=== PATIENT | female | born 1985 | race Caucasian/White ===

== ENCOUNTER 2025-03-03 11:21 | Inpatient (IN) | payer OTHER, SELFPAY ==
--- NOTE | 2025-03-03 | ECG_ITS ---
Test Reason : MED CLEARANCE Blood Pressure : */* mmHG Vent. Rate : 79 BPM Atrial Rate : 79 BPM P-R Int : 170 ms QRS Dur : 88 ms QT Int : 398 ms P-R-T Axes : 36 79 25 degrees QTcB Int : 456 ms Normal sinus rhythm Cannot rule out Anterior infarct , age undetermined Abnormal ECG No previous ECGs available Referred By: Ana Hood Electronically Signed By: YESICA MORIN MD
[2025-03-03 11:33] VITALS: BP 160/80; PULSE 80; O2SAT 99
[2025-03-03 11:34] VITALS: BP 160/80; PULSE 80; RESP 16; TEMP 36.7; O2SAT 99; BMI 34.7
--- NOTE | 2025-03-03 11:40 | ED.PSYCH ---
HPI - Psych General Chief Complaint: Psychiatric Symptoms Stated Complaint: CRISIS EVAL,FROM [facility] [place] PER EMS Time Seen by Provider: 03/03/25 11:24 Source: patient and EMS Mode of arrival: EMS Limitations: no limitations History of Present Illness ED Provider: CATRACHITO ERAZO Narrative: 39 yo female with opiate use disorder no current use, on methadone 125mg daily dosed today, bipolar on meds with a prescriber presents the the ED via EMS from [facility] program. She states she has been experiencing an increase in depression and worries her current medication regimen is not managing her mental health effectively. She reports last night (03/02) she began feeling an increase in agitation, depression, and began to have thoughts of suicidal ideation without HI. She expresses a desire to abstain from drug use and has been current with her methadone dose at 125mg with last does being today before leaving the facility. She denies HI. MD complaint: suicidal ideation and feels depressed Onset (ago): week(s) Duration: getting worse History of same: Yes Relieving factors: none Exacerbating factors: other Context: significant life stressor Associated psychiatric symptoms: depression and suicidal ideation Associated symptoms: denies other symptoms Treatments prior to arrival: none Related Data Home Medications ?Medication ?Instructions ?Recorded ?Confirmed alprazolam 1 mg tablet 1 mg PO TID 03/03/25 03/03/25 bupropion HCl 150 mg tablet,12 hr 300 mg PO DAILY 03/03/25 03/03/25 sustained-release chlorpromazine 100 mg tablet 100 mg PO TID PRN Agitation 03/03/25 03/03/25 chlorpromazine 200 mg tablet 200 mg PO QPM 03/03/25 03/03/25 dextroamphetamine-amphetamine 30 30 mg PO QNOON 03/03/25 03/03/25 mg tablet dextroamphetamine-amphetamine ER 1 cap PO QAM 03/03/25 03/03/25 30 mg 24hr capsule,extend release (Adderall XR) gabapentin 100 mg capsule 100 mg PO Q6H 03/03/25 03/03/25 gabapentin 800 mg tablet 800 mg PO Q6H 03/03/25 03/03/25 ibuprofen 600 mg tablet 600 mg PO Q8H PRN Pain 03/03/25 03/03/25 lurasidone 120 mg tablet 120 mg PO DAILY 03/03/25 03/03/25 methadone 10 mg/mL oral concentrate 125 mg PO DAILY 03/03/25 03/03/25 nicotine (polacrilex) 2 mg gum 2 mg buccal Q1H PRN Nicotine 03/03/25 03/03/25 Cravings zolpidem 10 mg tablet 10 mg PO BEDTIME 03/03/25 03/03/25 Allergies Allergy/AdvReac Type Severity Reaction Status Date / Time phenobarbital Allergy Severe Anaphylaxis Verified 03/03/25 11:56 Review of Systems Review of Systems: Constitutional : No Fever, No Chills ENT/Mouth : No Ear Pain, No Nasal Congestion, No sore throat Eyes: No Eye Pain, No Swelling, No Redness Cardiovascular : No Chest Pain, No SOB Respiratory : No Cough, No Sputum, No Dyspnea Gastrointestinal : No Nausea, No Vomiting, No Diarrhea, No Hematochezia, No Melena Genitourinary : No Dysuria, No Urinary Frequency, No Hematuria Musculoskeletal : No Myalgias Skin : No Skin Lesions, No rash Neuro : No Weakness, No Numbness, No Paresthesias, No Dizziness, No Headache Psych : positive Anxiety, positive Depression, positive SI no HI All other systems reviewed and are negative [facility] Past Medical History Attestation statement: The following information was validated with the patient. Social History Social History Household Members: Unknown / Unable to assess Patient Tobacco Use Status: Current everyday Tobacco user Tobacco use type: Cigarette Smoked in Last 30 Days: Yes Patient Interested in Nicotine Replacement: Yes Patient Given Instructions on How to Stop Smoking: Yes Date Education Initiated: 03/03/25 Second Hand Smoke Exposure: No Use of substances other than those prescribed or required for medical reasons: Refusing to respond Advance Directives: No Advance Directives Information Provided: Yes Do you have a plan to hurt others: No Plan Recently lost weight without trying: No Nutrition Risks: No Nutritional Risk Patient : No : No Poor oral hygiene: No Physical Exam Vital Signs: Vital Signs: Last Vital Signs Temp 97.6 F 03/03/25 19:17 Pulse 93 03/03/25 19:17 Resp 18 03/03/25 19:17 BP 136/87 03/03/25 19:17 Pulse Ox 97 03/03/25 19:17 O2 Del Method Room Air 03/03/25 19:17 BMI result Body Mass Index 34.7 Appearance: Alert. Oriented X3. No acute distress. Eyes: Pupils equal, round and reactive to light. ENT: Pharynx normal. Neck: Normal inspection. Neck supple. CVS: Normal heart rate and rhythm. Pulses normal. Respiratory: No respiratory distress. Breath sounds normal. Abdomen: Soft and nontender. Skin: Skin warm and dry. Normal skin color. Normal skin turgor. Extremities: No lower extremity edema. No calf ttp Neuro: Oriented X 3. No motor deficit. No sensory deficit. CN2-12 intact Course Course Course Narrative: Time: 18:00 Date: 03/03/25 Provider: Ana Hood DO Physician observation ended at 1800 Patient to be admitted as inpatient to psychiatry. Medications Administered Generic Name Dose Route Start Last Admin Trade Name Freq PRN Reason Stop Dose Admin Alprazolam 1 mg 03/03/25 21:00 03/03/25 19:52 Alprazolam 0.5 Mg Tablet PO 1 mg TID PRIMITIVO Administration Chlorpromazine HCl 200 mg 03/03/25 18:00 03/03/25 18:16 Chlorpromazine Hcl 100 Mg Tablet PO 200 mg DAILY@1800 PRIMITIVO Administration Gabapentin 800 mg 03/03/25 21:00 03/03/25 19:52 Gabapentin 400 Mg Capsule PO 800 mg QID PRIMITIVO Administration Gabapentin 100 mg 03/03/25 21:00 03/03/25 19:53 Gabapentin 100 Mg Capsule PO 100 mg QID PRIMITIVO Administration Zolpidem Tartrate 10 mg 03/03/25 21:00 03/03/25 19:52 Zolpidem Tartrate 5 Mg Tablet PO 10 mg BEDTIME PRIMITIVO Administration Medical Decision Making Medical Decision Making [facility] Narrative: 39 yo female with opiate use disorder no current use on methadone 125mg daily dosed today, bipolar on meds with a prescriber. She states she has been experiencing an increase in depression and worries her current medication regimen is not managing her mental health effectively. She reports last night (03/02) she began feeling an increase in agitation, depression, and began to have thoughts of suicidal ideation without HI. She expresses a desire to abstain from drug use and has been current with her methadone dose at 125mg with last does being today before leaving the facility. She denies HI. Patient is non toxic appearing, vital signs stable with exception of elevated of BP 160/80. Will obtain labs and urine drug screen with consult to CARE team. Differential Diagnosis Differential Diagnoses: The differential diagnosis associated with the presentation includes depression, SI Admission/Observation Consideration of admission/observation: Escalation of care including admission/observation considered physician observation started at 1147am pending CARE team Consult Healthcare Provider Management of the patient was discussed with: Behavioral Health Provider Lab Data MDM Lab Attestation statement: I reviewed the patient's lab results. 03/03/25 12:25 03/03/25 12:25 Labs: Lab Results 03/03/25 03/03/25 Range/Units 12:25 16:43 WBC 7.1 (4.8-10.8) X10*3/uL RBC 4.80 (4.20-5.50) X10*6/uL Hgb 13.1 (12.0-16.0) g/dl Hct 39.1 (37.0-47.0) % MCV 81.5 (80.0-98.0) fL MCH 27.3 (27.0-33.0) pg MCHC 33.5 (31.0-35.0) g/dl RDW 13.2 (11.0-16.0) % Plt Count 169 (160-400) X10*3/uL MPV 9.9 (9.4-12.3) fL Immature Gran % (Auto) 0.3 (0.0-0.4) % Neut % (Auto) 66.7 (45-73) % Lymph % (Auto) 25.7 (20-40) % [place] % (Auto) 5.8 (2-11) % Eos % (Auto) 1.1 (0-4) % Baso % (Auto) 0.4 (0-2) % Lymph # (Auto) 1.8 (1.2-4.9) X10*3/uL [place] # (Auto) 0.4 (0.1-1.2) X10*3/uL Eos # (Auto) 0.1 (0.0-0.4) X10*3/uL Baso # (Auto) 0.0 (0.0-0.2) X10*3/uL Abs Immat Gran (auto) 0.02 (0.00-0.03) X10*3/uL Absolute Neuts (auto) 4.7 (2.0-8.3) x10*3/uL Absolute Nucleated RBC 0.000 (0.0-0.012) X10*3/uL Nucleated RBC % (auto) 0.0 (0.0-0.2) /100WBC Smear Tech's Comments VERIFIED Sodium 138 (135-145) mmol/L Potassium 4.2 (3.3-5.1) mmol/L Chloride 107 (96-108) mmol/L Carbon Dioxide 22 (22-29) mmol/L Anion Gap 13 (12-20) BUN 10 (9-16) mg/dL Creatinine 0.74 (0.5-1.4) mg/dL Estim Creat Clear Calc 105.0 Estimated GFR > 60 Random Glucose 92 (60-115) mg/dL Calcium 9.4 (8.4-10.2) mg/dL Magnesium 1.9 (1.6-2.6) mg/dL Total Bilirubin 0.5 (0.0-1.0) mg/dL Direct Bilirubin 0.2 (0.0-0.5) mg/dL AST 72 H (5-31) U/L ALT 91 H (0-31) U/L Alkaline Phosphatase 85 (39-117) U/L Total Protein 7.5 (6.5-8.0) g/dL Albumin 4.1 (3.5-5.0) g/dL Beta HCG, Quant < 2 mIU/mL Urine Opiates Screen Not Detected (Not Detect) Ur Buprenorphine Scrn Not Detected (Not Detect) ng/mL Ur Oxycodone Screen Not Detected (Not Detect) ng/mL Urine Methadone Screen Positive H (Not Detect) ng/mL Urine Fentanyl Screen POSITIVE H (Not Detect) Ur Barbiturates Screen Not Detected (Not Detect) Ur Phencyclidine Scrn Not Detected (Not Detect) Ur Amphetamines Screen POSITIVE H (Not Detect) U Benzodiazepines Scrn POSITIVE H (Not Detect) Urine Cocaine Screen Not Detected (Not Detect) U Marijuana (THC) Screen Not Detected (Not Detect) External Record Review External record reviewed: Outpatient record Discharge Plan Discharge Clinical Impression: Suicidal ideation, Bipolar disorder Patient Disposition: Admitted As Inpatient Interventions: Admission Worksheet (ED) Last Done: 03/03/25 18:45 Discharge Date/Time: 03/03/25 18:51
--- NOTE | 2025-03-03 12:19 | PC.NURSE ---
Patient is a difficult stick for blood draws/labs. Unsuccessful draw attempt by Karis (ED PCT). Hx IVDA. Extensive scar tissues throughout all extremities from past drug use. Stated I usually need an ultrasound to get my veins . talent consultant (Katelynn) aware. Ashley Young (ED PCT) at bedside attempting draw.
[2025-03-03 12:38] LABS: Basophils Percent Auto 0.4 % (0-2); Eosinophils Absolute Auto 0.1 X10*3/uL (0.0-0.4); Eosinophils Percent Auto 1.1 % (0-4); Hematocrit 39.1 % (37.0-47.0); Hemoglobin 13.1 g/dl (12.0-16.0); Imm Gran Abs Auto 0.02 X10*3/uL (0.00-0.03); Imm Gran Pct Auto 0.3 % (0.0-0.4); Lymphocytes Absolute Auto 1.8 X10*3/uL (1.2-4.9); Lymphocytes Percent Auto 25.7 % (20-40); MANUAL DIFF FLAG SCAN; Mean Corpuscular HGB Conc 33.5 g/dl (31.0-35.0); Mean Corpuscular Hemoglobin 27.3 pg (27.0-33.0); Mean Corpuscular Volume 81.5 fL (80.0-98.0); Monocytes Absolute Auto 0.4 X10*3/uL (0.1-1.2); Monocytes Percent Auto 5.8 % (2-11); Neutrophils Absolute Auto 4.7 x10*3/uL (2.0-8.3); Neutrophils Percent Auto 66.7 % (45-73); PLT CLUMP 1; Red Cell Distribution Width 13.2 % (11.0-16.0); SCAN SMEAR FLAG 1
[2025-03-03 12:41] LABS: White Blood Count 7.1 X10*3/uL (4.8-10.8)
--- NOTE | 2025-03-03 12:44 | PC.NURSE ---
Attempted to call [facility] to confirm the patient's Methadone clinic dose & last administration. Called . No response, left voicemail with callback number. Awaiting call back.
[2025-03-03 12:56] LABS: Alanine Aminotransferase 91 U/L (0-31); Albumin Level 4.1 g/dL (3.5-5.0); Alkaline Phosphatase 85 U/L (39-117); Anion Gap 13 (12-20); Aspartate Amino Transferase 72 U/L (5-31); Bilirubin Direct 0.2 mg/dL (0.0-0.5); Bilirubin Total 0.5 mg/dL (0.0-1.0); Blood Urea Nitrogen 10 mg/dL (9-16); Calcium 9.4 mg/dL (8.4-10.2); Carbon Dioxide 22 mmol/L (22-29); Chloride 107 mmol/L (96-108); Estimated Glomerular Filt Rate > 60; Glucose Random 92 mg/dL (60-115); HCG Quantitative < 2 mIU/mL; Magnesium 1.9 mg/dL (1.6-2.6); Potassium 4.2 mmol/L (3.3-5.1); Sodium 138 mmol/L (135-145); Total Protein 7.5 g/dL (6.5-8.0)
[2025-03-03 13:12] LABS: Mean Platelet Volume 9.9 fL (9.4-12.3); Platelet Count 169 X10*3/uL (160-400)
[2025-03-03 13:13] LABS: SLIDE REVIEW VERIFIED
--- NOTE | 2025-03-03 15:09 | PC.NURSE ---
Received faxed copy of medication list from [facility] ([facility]) [place]. Medication reconciliation completed. Also received call back from [facility] and confirmed Methadone dose of 125mg, last received today at 08:01AM.
--- NOTE | 2025-03-03 15:18 | HE.PHANOTE ---
Methadone Methadone dose verified with [facility] BRANDI Martinez. [phone].Methadone dose = 125 mg , last dose 03/03/25 @0801.
--- NOTE | 2025-03-03 16:01 | MHC.CARE ---
Patient evaluated by the CARE Team, recommended disposition is inpatient psychiatric treatment. ED provider Dr. Erwin apodaca
[2025-03-03 16:58] LABS: Amphetamine Screen Urine POSITIVE (Not Detect); Barbiturates, Urine Not Detected (Not Detect); Benzodiazepines Screen Urine POSITIVE (Not Detect); Buprenorphine Scr Not Detected (Not Detect); Cannabinoid Screen Urine Not Detected (Not Detect); Cocaine Screen Urine Not Detected (Not Detect); Fentanyl, urine POSITIVE (Not Detect); Methadone Screen, Urine Positive (Not Detect); Opiate Screen Urine Not Detected (Not Detect); Oxycodone Screen Urine Not Detected (Not Detect); Phencyclidine Screen Urine Not Detected (Not Detect)
--- NOTE | 2025-03-03 17:41 | PHA.MEDREC ---
Addendum entered by Mindi Benitez RPh 03/03/25 18:20: [facility] reviewed Original Note: Pharmacy Consult ? Medication Reconciliation Pharmacy has reviewed the medication reconciliation done by nursing. Utilized list from [facility] to confirm med list. Called [facility] and spoke to Sidra and she confirmed patient Adderall dose is, Adderall XR 30 mg daily in the morning, and Dextroamphetamine-amphetamine 30 mg daily at noon, and Chlorpromazine 100 mg is TID PRN not BID. Updated med rec with changes.
[2025-03-03] MEDS: chlorproMAZINE HCl 100 MG TABLET 200 MG PO (18:16)
[2025-03-03 18:43] VITALS: BP 144/92; PULSE 86; RESP 18; TEMP 36.5; O2SAT 97
[2025-03-03 19:17] VITALS: BP 136/87; PULSE 93; RESP 18; TEMP 36.4; O2SAT 97
--- NOTE | 2025-03-03 19:18 | PC.ADMIT ---
Susana is a 39-year-old female [place] [facility] [place] [facility] on a CV for treatment of Bipolar, PTSD, depression and anxiety d/o. Tox screen positive for methadone, fentanyl, benzos and amhetamines. Pt takes prescribed methadone, adderall and thorazine. Skin check revealed healed scars on bilateral arms d/t substance use. Pt was transferred from [facility] in [place] for increased depression and suicidal thoughts. Pt had thoughts to overdose on medication but did not follow through. Per crisis eval pt has been in recovery from opiates for 6 months. Upon arrival to , pt was alert and oriented x4. Pt was agitated because I'm supposed to get my meds 3 times a day and I only got them in the morning, I don't understand why they didn't give them to me this afternoon. Pt refused to participate in remainder of admission assessment. RN asked pt to complete safety tool but pt stated none of that applies to me. Pt has hx of arrests and incarcerations related to drugs. Per crisis eval pt has a hx of trauma and suicidal ideation but pt adamantly denies this. Pt reports feeling safe on the unit and is on 15 minute safety checks.
[2025-03-03] MEDS: Zolpidem Tartrate 5 MG TABLET 10 MG PO (19:52)
[2025-03-03] MEDS: Gabapentin 400 MG CAPSULE 800 MG PO (19:52)
[2025-03-03] MEDS: ALPRAZolam 0.5 MG TABLET 1 MG PO (19:52)
[2025-03-03] MEDS: Gabapentin 100 MG CAPSULE PO (19:53)
[2025-03-03 20:02] VITALS: BMI 37.8
[2025-03-04] MEDS: methADONE HCl 20 MG/2 ML ORAL.CONC 125 MG PO (07:58)
[2025-03-04 08:00] VITALS: BP 108/68; PULSE 90; RESP 16; TEMP 36.8; O2SAT 96
[2025-03-04] MEDS: Lurasidone HCl 40 MG TABLET 120 MG PO (08:47)
[2025-03-04] MEDS: Gabapentin 400 MG CAPSULE 800 MG PO ×4 (08:48→20:04)
[2025-03-04] MEDS: buPROPion HCl XL 300 MG TAB.ER.24H PO (08:48)
[2025-03-04] MEDS: ALPRAZolam 0.5 MG TABLET 1 MG PO ×3 (08:48→20:04)
[2025-03-04] MEDS: Gabapentin 100 MG CAPSULE PO ×3 (08:48→17:03)
--- NOTE | 2025-03-04 13:23 | P.HPPS_ITS ---
HPI Date of Service: 03/04/25 Chief Complaint: Depression Sources of Information: patient interviewed, chart reviewed and crisis/core team assessment reviewed HPI Subjective Notes: Lynch Warning and Conditional Voluntary Narrative: Pt is a 39 yo with hx bipolar disorder, PTSD, opioid use disorder, on methadone, who presents for worsening depression and SI with thoughts but no plan or intention to overdose. Patient has been living at a [facility] and reports that she has been sober since August 2024 citing her daughter as a protective factor. She reports that since this past November her depression increased and things started getting harder; she has been without motivation, hard to get out of bed, not attending to ADLs, increase guilty feelings, poor concentration, diminished interest, low energy and difficulty falling asleep. She discussed this with outpatient provider who continued to increase Latuda however it remained ineffective and also caused the side effect of emotional numbing. She asked for a medication change but says provider continued to increase Latuda dose. Patient felt that no one was listening to her, depression increased and she started to feel hopeless. This past week she started having SI and so came to the hospital. No recent manic episodes for over a year; denies AVH Pt seen on 03/05/25 at 6pm Past Psychiatric History: Past psychiatric hospitalizations Med trials: [place]; did not prove helpful depakote; did not prove helpful Latuda; not helpful and caused emotional numbing Seroquel (much wt gain) effexor; unsure Paxil; not sure if helped helped wellbutrin does not seem to be helping Medical Evaluation Reviewed: Yes [facility] Medical History (Updated 03/05/25 @ 09:18 by Joni House MD) Opioid use disorder in remission PTSD (post-traumatic stress disorder) Schizoaffective disorder, bipolar type Family History: Defer Social History: Has been living in a [facility] Has a daughter who is 18 and serves as a protective factor Substance History: History of opioid abuse; on methadone Diagnostics Vital Signs (24Hr): Vital Signs - 24 hr 03/03/25 18:43 03/03/25 19:17 03/04/25 08:00 Temperature 97.7 F 97.6 F 98.3 F Pulse Rate 86 93 90 Respiratory Rate 18 18 16 Blood Pressure 144/92 H 136/87 108/68 Pulse Oximetry 97 97 96 Oxygen Delivery Method Room Air Room Air Room Air BMI result Body Mass Index 37.8 Labs 04/16/25 12:25 03/03/25 12:25 Labs: Laboratory Results - last 48 hr 03/03/25 03/03/25 12:25 16:43 WBC 7.1 RBC 4.80 Hgb 13.1 Hct 39.1 MCV 81.5 MCH 27.3 MCHC 33.5 RDW 13.2 Plt Count 169 MPV 9.9 Immature Gran % (Auto) 0.3 Neut % (Auto) 66.7 Lymph % (Auto) 25.7 [place] % (Auto) 5.8 Eos % (Auto) 1.1 Baso % (Auto) 0.4 Lymph # (Auto) 1.8 [place] # (Auto) 0.4 Eos # (Auto) 0.1 Baso # (Auto) 0.0 Abs Immat Gran (auto) 0.02 Absolute Neuts (auto) 4.7 Absolute Nucleated RBC 0.000 Nucleated RBC % (auto) 0.0 Smear Tech's Comments VERIFIED Sodium 138 Potassium 4.2 Chloride 107 Carbon Dioxide 22 Anion Gap 13 BUN 10 Creatinine 0.74 Estim Creat Clear Calc 105.0 Estimated GFR > 60 Random Glucose 92 Calcium 9.4 Magnesium 1.9 Total Bilirubin 0.5 Direct Bilirubin 0.2 AST 72 H ALT 91 H Alkaline Phosphatase 85 Total Protein 7.5 Albumin 4.1 Beta HCG, Quant < 2 Urine Opiates Screen Not Detected Ur Buprenorphine Scrn Not Detected Ur Oxycodone Screen Not Detected Urine Methadone Screen Positive H Urine Fentanyl Screen POSITIVE H Ur Barbiturates Screen Not Detected Ur Phencyclidine Scrn Not Detected Ur Amphetamines Screen POSITIVE H U Benzodiazepines Scrn POSITIVE H Urine Cocaine Screen Not Detected U Marijuana (THC) Screen Not Detected Meds/Allergies Meds Home Medications ?Medication ?Instructions ?Recorded ?Confirmed ?Type alprazolam 1 mg tablet 1 mg PO TID 03/03/25 03/03/25 History bupropion HCl 150 mg tablet,12 hr 300 mg PO DAILY 03/03/25 03/03/25 History sustained-release chlorpromazine 100 mg tablet 100 mg PO TID PRN Agitation 03/03/25 03/03/25 History chlorpromazine 200 mg tablet 200 mg PO QPM 03/03/25 03/03/25 History dextroamphetamine-amphetamine 30 30 mg PO QNOON 03/03/25 03/03/25 History mg tablet dextroamphetamine-amphetamine ER 1 cap PO QAM 03/03/25 03/03/25 History 30 mg 24hr capsule,extend release (Adderall XR) gabapentin 100 mg capsule 100 mg PO Q6H 03/03/25 03/03/25 History gabapentin 800 mg tablet 800 mg PO Q6H 03/03/25 03/03/25 History ibuprofen 600 mg tablet 600 mg PO Q8H PRN Pain 03/03/25 03/03/25 History lurasidone 120 mg tablet 120 mg PO DAILY 03/03/25 03/03/25 History methadone 10 mg/mL oral concentrate 125 mg PO DAILY 03/03/25 03/03/25 History nicotine (polacrilex) 2 mg gum 2 mg buccal Q1H PRN Nicotine 03/03/25 03/03/25 History Cravings zolpidem 10 mg tablet 10 mg PO BEDTIME 03/03/25 03/03/25 History Allergies Allergies Allergy/AdvReac Type Severity Reaction Status Date / Time phenobarbital Allergy Severe Anaphylaxis Verified 03/03/25 11:56 Mental Status Exam Mental Status Exam Narrative: Pt is alert and oriented; behavior is cooperative, isolative though friendly on approach; calm; patient is not in distress; dressed in casual attire, unkempt; mood is described as depressed and affect congruent, downcast; eye contact somewhat avoidant; Speech is a little slowed; a little soft; normal prosody; not pressured; psychomotor retardation present; thought process is organized and goal directed; Thought content is on tx; fighting off thoughts of hopelessness; otherwise pertinent to relevant topics and without any delusional content, paranoid ideations or grandiosity; passive SI; no HI; Denies AVH and there is no evidence of perceptual disturbance. Patients insight and judgment impaired Assessment & Plan Assessment & Plan (1) Schizoaffective disorder, bipolar type: Status: Acute Code(s): F25.0 - Schizoaffective disorder, bipolar type (2) PTSD (post-traumatic stress disorder): Status: Acute Code(s): F43.10 - Post-traumatic stress disorder, unspecified (3) Opioid use disorder in remission: Status: Acute Code(s): F11.91 - Opioid use, unspecified, in remission Plan Pt is a 39 yo with hx PTSD, bipolar disorder, PTSD, opioid use disorder, on methadone, who presents for worsening depression and SI with thoughts but no plan or intention to overdose. Patient has been living at a [facility] and reports that she has been sober since August 2024 citing her daughter as a protective factor. She reports that since this past November her depression increased and things started getting harder; she has been without motivation, hard to get out of bed, not attending to ADLs, increase guilty feelings, poor concentration, diminished interest, low energy and difficulty falling asleep. She discussed this with outpatient provider who continued to increase Latuda however it remained ineffective and also caused the side effect of emotional numbing. She asked for a medication change but says provider continued to increase Latuda dose. Patient felt that no one was listening to her, depression increased and she started to feel hopeless. This past week she started having SI and so came to the hospital. No recent manic episodes for over a year; denies AVH Formulation/clinical reasoning: Patient with bipolar depression that has been worsening. Has numerous failed medication trials including lithium, Depakote and now Latuda. Discussed risks/side effects of options including Vraylar and patient agrees to start Vraylar. Patient reports sobriety since August of last year; UDS positive for fentanyl however this could be false positive and patient has been living in a TSS. Patient wanted to discontinue Wellbutrin since she has not found it helpful at all; asked for gabapentin to be lowered back to 800 q.i.d. not sure why was increased to 900; patient asks for Thorazine q.h.s. for insomnia and for anxiety. Wants to remain on methadone Plan: CV Q 15 minute checks Start Vraylar 1.5 mg today and then 3 mg tomorrow (insurance should cover given numerous failed mood stabilizing medication trials) DC Latuda: Not helpful and causes emotional numbing dc'd wellburin; not helpful lowere eben to 800 Thorazine 200 mg q.h.s. Thorazine 50 mg p.r.n. for agitation Continue Xanax since patient is on it as an outpatient Continued Ambien Med trials: [place]; did not prove helpful depakote; did not prove helpful Latuda; not helpful and caused emotional numbing Seroquel (much wt gain) effexor; unsure Paxil; not sure if helped helped wellbutrin does not seem to be helping Patient educated on: diagnosis, medication risk/benefits and substance abuse Informed Consent: understands Reason for continued inpatient stay Substantial Risk for: rapid decompensation Statement Statement: I have reviewed the history and physical and performed a pertinent examination on my patient. No changes have occurred unless specified. If the History and Physical was not performed prior to admission, the Hospitalist's service will be consulted for completing the admission physical. Time Spent With Patient Time: Total time managing care of this patient today ____ minutes.
[2025-03-04] MEDS: chlorproMAZINE HCl 100 MG TABLET 200 MG PO (17:03)
[2025-03-04] MEDS: Nicotine Polacrilex 2 MG GUM 4 MG BUCCAL (17:05)
[2025-03-04 20:00] VITALS: BP 139/77; PULSE 87; RESP 16; TEMP 36.8; O2SAT 97
[2025-03-04] MEDS: Cariprazine HCl 1.5 MG CAPSULE PO (20:04)
[2025-03-04] MEDS: Zolpidem Tartrate 5 MG TABLET 10 MG PO (20:05)
[2025-03-05 07:41] VITALS: BP 108/70; PULSE 85; RESP 14; TEMP 36.4; O2SAT 98
[2025-03-05] MEDS: methADONE HCl 20 MG/2 ML ORAL.CONC 125 MG PO (08:29)
[2025-03-05] MEDS: ALPRAZolam 0.5 MG TABLET 1 MG PO ×3 (08:31→20:16)
[2025-03-05] MEDS: Cariprazine HCl 3 MG CAPSULE PO (08:32)
[2025-03-05] MEDS: Gabapentin 400 MG CAPSULE 800 MG PO ×4 (08:32→20:17)
[2025-03-05] MEDS: chlorproMAZINE HCl 100 MG TABLET PO ×2 (08:33→16:04)
[2025-03-05] MEDS: Nicotine Polacrilex 2 MG GUM 4 MG BUCCAL (08:57)
--- NOTE | 2025-03-05 09:19 | HO.PSYCHPN ---
Subjective Subjective Date of Service: 03/05/25 Reason For Visit: Depression Subjective Notes: Conditional Voluntary Interim History: Active on unit, pacing while listening to unit headphones. Patient reports her depression has improved but continues to feel anxious throughout the day. per nursing, slept 8 hours last night. denies SI/HI/VH/AH. Patient encouraged to attend groups. Medication Compliance: Yes Side effects from medications: No Mental Status Exam Mental Status Exam Narrative: Pt is alert and oriented; behavior is cooperative and calm; dressed in casual attire; mood is described as anxious ; eye contact appropriate; Speech is normal rate, volume and not pressured; thought process is organized and goal directed; Thought content is on tx; denies SI/HI/VH/AH. Diagnostics Vital Signs (24Hr): Vital Signs - 24 hr 03/04/25 20:00 03/05/25 07:41 Temperature 98.3 F 97.5 F Pulse Rate 87 85 Respiratory Rate 16 14 Blood Pressure 139/77 108/70 Pulse Oximetry 97 98 Oxygen Delivery Method Room Air Room Air BMI result Body Mass Index 37.8 Labs 03/03/25 12:25 03/03/25 12:25 Labs: Laboratory Results - last 48 hr 03/03/25 03/03/25 12:25 16:43 WBC 7.1 RBC 4.80 Hgb 13.1 Hct 39.1 MCV 81.5 MCH 27.3 MCHC 33.5 RDW 13.2 Plt Count 169 MPV 9.9 Immature Gran % (Auto) 0.3 Neut % (Auto) 66.7 Lymph % (Auto) 25.7 [place] % (Auto) 5.8 Eos % (Auto) 1.1 Baso % (Auto) 0.4 Lymph # (Auto) 1.8 [place] # (Auto) 0.4 Eos # (Auto) 0.1 Baso # (Auto) 0.0 Abs Immat Gran (auto) 0.02 Absolute Neuts (auto) 4.7 Absolute Nucleated RBC 0.000 Nucleated RBC % (auto) 0.0 Smear Tech's Comments VERIFIED Sodium 138 Potassium 4.2 Chloride 107 Carbon Dioxide 22 Anion Gap 13 BUN 10 Creatinine 0.74 Estim Creat Clear Calc 105.0 Estimated GFR > 60 Random Glucose 92 Calcium 9.4 Magnesium 1.9 Total Bilirubin 0.5 Direct Bilirubin 0.2 AST 72 H ALT 91 H Alkaline Phosphatase 85 Total Protein 7.5 Albumin 4.1 Beta HCG, Quant < 2 Urine Opiates Screen Not Detected Ur Buprenorphine Scrn Not Detected Ur Oxycodone Screen Not Detected Urine Methadone Screen Positive H Urine Fentanyl Screen POSITIVE H Ur Barbiturates Screen Not Detected Ur Phencyclidine Scrn Not Detected Ur Amphetamines Screen POSITIVE H U Benzodiazepines Scrn POSITIVE H Urine Cocaine Screen Not Detected U Marijuana (THC) Screen Not Detected Medications Medications Current Medications Acetaminophen (Acetaminophen 325 Mg Tablet) 650 mg PO Q6H PRN PRN Reason: Headache/Pain, Scale 1-10 Al Hydroxide/Mg Hydroxide (Magnesium Hydrox/Alum Hydrox 30 Ml Oral.Susp) 30 ml PO Q6H PRN PRN Reason: Heartburn/Nausea Alprazolam (Alprazolam 0.5 Mg Tablet) 1 mg PO TID [facility] Last Admin: 03/05/25 08:31 Dose: 1 mg Cariprazine (Cariprazine Hcl 3 Mg Capsule) 3 mg PO DAILY [facility] Last Admin: 03/05/25 08:32 Dose: 3 mg Chlorpromazine HCl (Chlorpromazine Hcl 100 Mg Tablet) 100 mg PO TID PRN PRN Reason: Agitation Last Admin: 03/05/25 08:33 Dose: 100 mg Chlorpromazine HCl (Chlorpromazine Hcl 100 Mg Tablet) 200 mg PO BEDTIME [facility] Last Admin: 03/04/25 20:07 Dose: Not Given Gabapentin (Gabapentin 400 Mg Capsule) 800 mg PO QID [facility] Last Admin: 03/05/25 08:32 Dose: 800 mg Hydroxyzine HCl (Hydroxyzine Hcl 25 Mg Tablet) 25 mg PO Q6H PRN PRN Reason: mild anxiety Ibuprofen (Ibuprofen 600 Mg Tablet) 600 mg PO Q8H PRN PRN Reason: Pain, Mild (Pain Scale 1-3) Magnesium Hydroxide (Milk Of Magnesia 30 Ml Oral.Susp) 30 ml PO DAILY PRN PRN Reason: Constipation Methadone HCl (Methadone Hcl 20 Mg/2 Ml Oral.Conc) 125 mg PO DAILY@0800 [facility] Last Admin: 03/05/25 08:29 Dose: 125 mg Nicotine (Nicotine 21 Mg Patch.Td24) 21 mg TRANSDERMA DAILY PRN PRN Reason: smoking cessation Nicotine Polacrilex (Nicotine Polacrilex 2 Mg Gum) 4 mg BUCCAL Q2H PRN PRN Reason: Nicotine Cravings Last Admin: 03/05/25 08:57 Dose: 4 mg Trazodone HCl (Trazodone Hcl 50 Mg Tablet) 50 mg PO BEDTIME MRX1 PRN PRN Reason: Insomnia Zolpidem Tartrate (Zolpidem Tartrate 5 Mg Tablet) 10 mg PO BEDTIME PRIMITIVO Last Admin: 03/04/25 20:05 Dose: 10 mg Allergies Allergies Allergy/AdvReac Type Severity Reaction Status Date / Time phenobarbital Allergy Severe Anaphylaxis Verified 03/03/25 11:56 Assessment & Plan Assessment & Plan (1) Bipolar disorder: Status: Acute Code(s): F31.9 - Bipolar disorder, unspecified (2) PTSD (post-traumatic stress disorder): Status: Acute Code(s): F43.10 - Post-traumatic stress disorder, unspecified (3) Opioid use disorder in remission: Status: Acute Code(s): F11.91 - Opioid use, unspecified, in remission Plan Pt is a 39 yo with hx PTSD, bipolar disorder, PTSD, opioid use disorder, on methadone, who presents for worsening depression and SI with thoughts but no plan or intention to overdose. Patient has been living at a [facility] and reports that she has been sober since August 2024 citing her daughter as a protective factor. She reports that since this past November her depression increased and things started getting harder; she has been without motivation, hard to get out of bed, not attending to ADLs, increase guilty feelings, poor concentration, diminished interest, low energy and difficulty falling asleep. She discussed this with outpatient provider who continued to increase Latuda however it remained ineffective and also caused the side effect of emotional numbing. She asked for a medication change but says provider continued to increase Latuda dose. Patient felt that no one was listening to her, depression increased and she started to feel hopeless. This past week she started having SI and so came to the hospital. No recent manic episodes for over a year; denies [facility] Formulation/clinical reasoning: Patient with bipolar depression that has been worsening. Has numerous failed medication trials including lithium, Depakote and now Latuda. Discussed risks/side effects of options including Vraylar and patient agrees to start Vraylar. Patient reports sobriety since August of last year; UDS positive for fentanyl however this could be false positive and patient has been living in a TSS. Patient wanted to discontinue Wellbutrin since she has not found it helpful at all; asked for gabapentin to be lowered back to 800 q.i.d. not sure why was increased to 900; patient asks for Thorazine q.h.s. for insomnia and for anxiety. Wants to remain on methadone Plan: CV Q 15 minute checks Start Vraylar 1.5 mg today and then 3 mg tomorrow (insurance should cover given numerous failed mood stabilizing medication trials) DC Latuda: Not helpful and causes emotional numbing dc'd wellburin; not helpful lowere eben to 800 Thorazine 100 mg q.h.s. Thorazine 50 mg p.r.n. for agitation 03/05: Active on unit, pacing while listening to unit headphones. Patient reports her depression has improved but continues to feel anxious throughout the day. per nursing, slept 8 hours last night. denies SI/HI/VH/AH. Patient encouraged to attend groups. Continue current tx plan Patient educated on: diagnosis, medication risk/benefits and therapeutic strategies Reason for continued inpatient stay Substantial Risk for: med/psych decompensation Time Spent With Patient Time: Total time managing care of this patient today _20___ minutes.
[2025-03-05 20:00] VITALS: BP 119/62; PULSE 86; RESP 18; TEMP 36.6; O2SAT 94
[2025-03-05] MEDS: Zolpidem Tartrate 5 MG TABLET 10 MG PO (20:17)
[2025-03-05] MEDS: chlorproMAZINE HCl 100 MG TABLET 200 MG PO (20:18)
[2025-03-06 08:00] VITALS: BP 122/90; PULSE 100; RESP 14; TEMP 36.3; O2SAT 98
[2025-03-06] MEDS: methADONE HCl 20 MG/2 ML ORAL.CONC 125 MG PO (08:30)
[2025-03-06] MEDS: ALPRAZolam 0.5 MG TABLET 1 MG PO ×3 (08:34→20:02)
[2025-03-06] MEDS: chlorproMAZINE HCl 100 MG TABLET PO (08:34)
[2025-03-06] MEDS: Cariprazine HCl 3 MG CAPSULE PO (08:35)
[2025-03-06] MEDS: Gabapentin 400 MG CAPSULE 800 MG PO ×2 (08:35→18:06)
[2025-03-06] MEDS: Nicotine Polacrilex 2 MG GUM 4 MG BUCCAL ×2 (09:45→18:30)
--- NOTE | 2025-03-06 10:45 | P.PNPSI_ITS ---
Subjective Subjective Date of Service: 03/06/25 Reason For Visit: Depression Subjective Notes: Conditional Voluntary Interim History: Pt slept 6hrs. She has been mostly in bed. She reports feeling anxious. She is on several medications including thorazine, gabapentin, xanax, vraylar. When asked to describe she reports she is moving her legs, which this automobile and property underwriter can see as we meeting, restless. Seems more akathisia. We discussed tapering off thorazine and trying propanolol instead. Medication Compliance: Yes Review of Systems Review of Systems Constitutional : No Fever, No Chills ENT/Mouth : No Ear Pain, No Nasal Congestion, No sore throat Eyes: No Eye Pain, No Swelling, No Redness Cardiovascular : No Chest Pain, No SOB Respiratory : No Cough, No Sputum, No Dyspnea Gastrointestinal : No Nausea, No Vomiting, No Diarrhea, No Hematochezia, No Melena Genitourinary : No Dysuria, No Urinary Frequency, No Hematuria Musculoskeletal : No Myalgias Skin : No Skin Lesions, No rash Neuro : No Weakness, No Numbness, No Paresthesias, No Dizziness, No Headache Psych : positive Anxiety, positive Depression, positive SI no HI All other systems reviewed and are negative Mental Status Exam Mental Status Exam Narrative: Pt is alert and oriented; behavior is cooperative and calm; dressed in casual attire; mood is described as anxious ; eye contact appropriate; Speech is normal rate, volume and not pressured; thought process is organized and goal directed; Thought content is on tx; denies SI/HI/VH/AH. Diagnostics Vital Signs (24Hr): Vital Signs - 24 hr 03/05/25 20:00 03/06/25 08:00 Temperature 97.8 F 97.3 F Pulse Rate 86 100 Respiratory Rate 18 14 Blood Pressure 119/62 122/90 H Pulse Oximetry 94 98 Oxygen Delivery Method Room Air Room Air BMI result Body Mass Index 37.8 Labs 03/03/25 12:25 03/03/25 12:25 Medications Medications Current Medications Acetaminophen (Acetaminophen 325 Mg Tablet) 650 mg PO Q6H PRN PRN Reason: Headache/Pain, Scale 1-10 Al Hydroxide/Mg Hydroxide (Magnesium Hydrox/Alum Hydrox 30 Ml Oral.Susp) 30 ml PO Q6H PRN PRN Reason: Heartburn/Nausea Alprazolam (Alprazolam 0.5 Mg Tablet) 1 mg PO TID [facility] Last Admin: 03/06/25 08:34 Dose: 1 mg Cariprazine (Cariprazine Hcl 3 Mg Capsule) 3 mg PO DAILY [facility] Last Admin: 03/06/25 08:35 Dose: 3 mg Gabapentin (Gabapentin 400 Mg Capsule) 1,600 mg PO BEDTIME PRIMITIVO Gabapentin (Gabapentin 400 Mg Capsule) 800 mg PO BID@1000,1700 [facility] Hydroxyzine HCl (Hydroxyzine Hcl 25 Mg Tablet) 25 mg PO Q6H PRN PRN Reason: mild anxiety Ibuprofen (Ibuprofen 600 Mg Tablet) 600 mg PO Q8H PRN PRN Reason: Pain, Mild (Pain Scale 1-3) Magnesium Hydroxide (Milk Of Magnesia 30 Ml Oral.Susp) 30 ml PO DAILY PRN PRN Reason: Constipation Methadone HCl (Methadone Hcl 20 Mg/2 Ml Oral.Conc) 125 mg PO DAILY@0800 [facility] Last Admin: 03/06/25 08:30 Dose: 125 mg Nicotine (Nicotine 21 Mg Patch.Td24) 21 mg TRANSDERMA DAILY PRN PRN Reason: smoking cessation Nicotine Polacrilex (Nicotine Polacrilex 2 Mg Gum) 4 mg BUCCAL Q2H PRN PRN Reason: Nicotine Cravings Last Admin: 03/06/25 09:45 Dose: 4 mg Propranolol HCl (Propranolol Hcl 10 Mg Tablet) 10 mg PO TID [facility]; Protocol Trazodone HCl (Trazodone Hcl 50 Mg Tablet) 50 mg PO BEDTIME MRX1 PRN PRN Reason: Insomnia Zolpidem Tartrate (Zolpidem Tartrate 5 Mg Tablet) 10 mg PO BEDTIME [facility] Last Admin: 03/05/25 20:17 Dose: 10 mg Allergies Allergies Allergy/AdvReac Type Severity Reaction Status Date / Time phenobarbital Allergy Severe Anaphylaxis Verified 03/03/25 11:56 Assessment & Plan Assessment & Plan (1) Bipolar disorder: Status: Acute Code(s): F31.9 - Bipolar disorder, unspecified (2) PTSD (post-traumatic stress disorder): Status: Acute Code(s): F43.10 - Post-traumatic stress disorder, unspecified (3) Opioid use disorder in remission: Status: Acute Code(s): F11.91 - Opioid use, unspecified, in remission Plan Pt is a 39 yo with hx PTSD, bipolar disorder, PTSD, opioid use disorder, on methadone, who presents for worsening depression and SI with thoughts but no plan or intention to overdose. Patient has been living at a TSS and reports that she has been sober since August 2024 citing her daughter as a protective factor. She reports that since this past November her depression increased and things started getting harder; she has been without motivation, hard to get out of bed, not attending to ADLs, increase guilty feelings, poor concentration, diminished interest, low energy and difficulty falling asleep. She discussed this with outpatient provider who continued to increase Latuda however it remained ineffective and also caused the side effect of emotional numbing. She asked for a medication change but says provider continued to increase Latuda dose. Patient felt that no one was listening to her, depression increased and she started to feel hopeless. This past week she started having SI and so came to the hospital. No recent manic episodes for over a year; denies [facility] Formulation/clinical reasoning: Patient with bipolar depression that has been worsening. Has numerous failed medication trials including lithium, Depakote and now Latuda. Discussed risks/side effects of options including Vraylar and patient agrees to start Vraylar. Patient reports sobriety since August of last year; UDS positive for fentanyl however this could be false positive and patient has been living in a TSS. Patient wanted to discontinue Wellbutrin since she has not found it helpful at all; asked for gabapentin to be lowered back to 800 q.i.d. not sure why was increased to 900; patient asks for Thorazine q.h.s. for insomnia and for anxiety. Wants to remain on methadone Plan: CV Q 15 minute checks Start Vraylar 1.5 mg today and then 3 mg tomorrow (insurance should cover given numerous failed mood stabilizing medication trials) DC Latuda: Not helpful and causes emotional numbing dc'd wellburin; not helpful lowere eben to 800 Thorazine 100 mg q.h.s. Thorazine 50 mg p.r.n. for agitation 03/05: Active on unit, pacing while listening to unit headphones. Patient reports her depression has improved but continues to feel anxious throughout the day. per nursing, slept 8 hours last night. denies SI/HI/VH/AH. Patient encouraged to attend groups. Continue current tx plan 03/06 seems more than anxiety akathisia. d/c thorazine and start propanolol 10mg po TID. continue other meds. will increase trazodone, move dose of gabapetin to night time. Reason for continued inpatient stay Substantial Risk for: inability to function Time Spent With Patient Time: Total time managing care of this patient today ____ minutes.
[2025-03-06 15:01] VITALS: BP 134/68; PULSE 92
[2025-03-06] MEDS: Propranolol HCL 10 MG TABLET PO ×2 (15:01→20:02)
[2025-03-06 20:00] VITALS: BP 113/70; PULSE 83; RESP 16; TEMP 36.4; O2SAT 98
[2025-03-06] MEDS: Gabapentin 400 MG CAPSULE 1600 MG PO (20:01)
[2025-03-06] MEDS: Zolpidem Tartrate 5 MG TABLET 10 MG PO (20:02)
[2025-03-06] MEDS: traZODone HCL 50 MG TABLET PO (22:32)
[2025-03-06] MEDS: hydrOXYzine HCL 25 MG TABLET PO (22:32)
[2025-03-07 07:10] VITALS: BP 108/71; PULSE 81; RESP 14; TEMP 36.6; O2SAT 98
[2025-03-07] MEDS: methADONE HCl 20 MG/2 ML ORAL.CONC 125 MG PO (08:09)
[2025-03-07] MEDS: Gabapentin 400 MG CAPSULE 800 MG PO ×2 (08:59→16:50)
[2025-03-07 09:00] VITALS: BP 108/71; PULSE 81
[2025-03-07] MEDS: Propranolol HCL 10 MG TABLET PO ×3 (09:00→21:58)
[2025-03-07] MEDS: Cariprazine HCl 3 MG CAPSULE PO (09:00)
[2025-03-07] MEDS: Nicotine Polacrilex 2 MG GUM 4 MG BUCCAL (09:00)
[2025-03-07] MEDS: ALPRAZolam 0.5 MG TABLET 1 MG PO ×3 (09:00→22:01)
[2025-03-07 16:31] VITALS: BP 116/66; PULSE 66
[2025-03-07 16:32] VITALS: BP 116/66; PULSE 66
[2025-03-07 20:00] VITALS: BP 110/61; PULSE 79; RESP 18; TEMP 36.6; O2SAT 98
[2025-03-07 21:58] VITALS: BP 110/61; PULSE 79
[2025-03-07] MEDS: hydrOXYzine HCL 25 MG TABLET PO (21:58)
[2025-03-07] MEDS: Zolpidem Tartrate 5 MG TABLET 10 MG PO (21:58)
[2025-03-07] MEDS: traZODone HCL 50 MG TABLET PO (22:00)
[2025-03-07] MEDS: Gabapentin 400 MG CAPSULE 1600 MG PO (22:01)
[2025-03-07] MEDS: chlorproMAZINE HCl 100 MG TABLET PO (22:01)
--- NOTE | 2025-03-07 22:30 | P.PNPSI_ITS ---
Subjective Subjective Date of Service: 03/07/25 Reason For Visit: Depression Subjective Notes: Conditional Voluntary Interim History: Pt slept 6hrs. She has been mostly in bed. she does nap intermittently during the day. She reports propanolol seems to be decreasing sense of restlessness. She reports difficult staying asleep, would adjust dose of trazodone as she is already on ambien. Review of Systems Review of Systems Constitutional : No Fever, No Chills ENT/Mouth : No Ear Pain, No Nasal Congestion, No sore throat Eyes: No Eye Pain, No Swelling, No Redness Cardiovascular : No Chest Pain, No SOB Respiratory : No Cough, No Sputum, No Dyspnea Gastrointestinal : No Nausea, No Vomiting, No Diarrhea, No Hematochezia, No Melena Genitourinary : No Dysuria, No Urinary Frequency, No Hematuria Musculoskeletal : No Myalgias Skin : No Skin Lesions, No rash Neuro : No Weakness, No Numbness, No Paresthesias, No Dizziness, No Headache Psych : positive Anxiety, positive Depression, positive SI no HI All other systems reviewed and are negative Mental Status Exam Mental Status Exam Narrative: Pt is alert and oriented; behavior is cooperative and calm; dressed in casual attire; mood is described as anxious ; eye contact appropriate; Speech is normal rate, volume and not pressured; thought process is organized and goal directed; Thought content is on tx; denies SI/HI/VH/AH. Diagnostics Vital Signs (24Hr): Vital Signs - 24 hr 03/07/25 07:10 03/07/25 09:00 03/07/25 16:31 Temperature 97.8 F Pulse Rate 81 81 66 Respiratory Rate 14 Blood Pressure 108/71 108/71 116/66 Pulse Oximetry 98 Oxygen Delivery Method Room Air 03/07/25 16:32 03/07/25 21:58 Temperature Pulse Rate 66 79 Respiratory Rate Blood Pressure 116/66 110/61 Pulse Oximetry Oxygen Delivery Method BMI result Body Mass Index 37.8 Labs 03/03/25 12:25 03/03/25 12:25 Medications Medications Current Medications Acetaminophen (Acetaminophen 325 Mg Tablet) 650 mg PO Q6H PRN PRN Reason: Headache/Pain, Scale 1-10 Al Hydroxide/Mg Hydroxide (Magnesium Hydrox/Alum Hydrox 30 Ml Oral.Susp) 30 ml PO Q6H PRN PRN Reason: Heartburn/Nausea Alprazolam (Alprazolam 0.5 Mg Tablet) 1 mg PO TID [facility] Last Admin: 03/07/25 22:01 Dose: 1 mg Cariprazine (Cariprazine Hcl 3 Mg Capsule) 3 mg PO DAILY [facility] Last Admin: 03/07/25 09:00 Dose: 3 mg Chlorpromazine HCl (Chlorpromazine Hcl 100 Mg Tablet) 100 mg PO BEDTIME PRN PRN Reason: sleep Last Admin: 03/07/25 22:01 Dose: 100 mg Gabapentin (Gabapentin 400 Mg Capsule) 1,600 mg PO BEDTIME [facility] Last Admin: 03/07/25 22:01 Dose: 1,600 mg Gabapentin (Gabapentin 400 Mg Capsule) 800 mg PO BID@1000,1700 [facility] Last Admin: 03/07/25 16:50 Dose: 800 mg Hydroxyzine HCl (Hydroxyzine Hcl 25 Mg Tablet) 25 mg PO Q6H PRN PRN Reason: mild anxiety Last Admin: 03/07/25 21:58 Dose: 25 mg Ibuprofen (Ibuprofen 600 Mg Tablet) 600 mg PO Q8H PRN PRN Reason: Pain, Mild (Pain Scale 1-3) Magnesium Hydroxide (Milk Of Magnesia 30 Ml Oral.Susp) 30 ml PO DAILY PRN PRN Reason: Constipation Methadone HCl (Methadone Hcl 20 Mg/2 Ml Oral.Conc) 125 mg PO DAILY@0800 [facility] Last Admin: 03/07/25 08:09 Dose: 125 mg Nicotine (Nicotine 21 Mg Patch.Td24) 21 mg TRANSDERMA DAILY PRN PRN Reason: smoking cessation Nicotine Polacrilex (Nicotine Polacrilex 2 Mg Gum) 4 mg BUCCAL Q2H PRN PRN Reason: Nicotine Cravings Last Admin: 03/07/25 09:00 Dose: 4 mg Propranolol HCl (Propranolol Hcl 10 Mg Tablet) 10 mg PO TID [facility]; Protocol Last Admin: 03/07/25 21:58 Dose: 10 mg Trazodone HCl (Trazodone Hcl 50 Mg Tablet) 50 mg PO BEDTIME MRX1 PRN PRN Reason: Insomnia Last Admin: 03/07/25 22:00 Dose: 50 mg Zolpidem Tartrate (Zolpidem Tartrate 5 Mg Tablet) 10 mg PO BEDTIME [facility] Last Admin: 03/07/25 21:58 Dose: 10 mg Allergies Allergies Allergy/AdvReac Type Severity Reaction Status Date / Time phenobarbital Allergy Severe Anaphylaxis Verified 03/03/25 11:56 Assessment & Plan Assessment & Plan (1) Bipolar disorder: Status: Acute Code(s): F31.9 - Bipolar disorder, unspecified (2) PTSD (post-traumatic stress disorder): Status: Acute Code(s): F43.10 - Post-traumatic stress disorder, unspecified (3) Opioid use disorder in remission: Status: Acute Code(s): F11.91 - Opioid use, unspecified, in remission Plan Pt is a 39 yo with hx PTSD, bipolar disorder, PTSD, opioid use disorder, on methadone, who presents for worsening depression and SI with thoughts but no plan or intention to overdose. Patient has been living at a TSS and reports that she has been sober since August 2024 citing her daughter as a protective factor. She reports that since this past November her depression increased and things started getting harder; she has been without motivation, hard to get out of bed, not attending to ADLs, increase guilty feelings, poor concentration, diminished interest, low energy and difficulty falling asleep. She discussed this with outpatient provider who continued to increase Latuda however it remained ineffective and also caused the side effect of emotional numbing. She asked for a medication change but says provider continued to increase Latuda dose. Patient felt that no one was listening to her, depression increased and she started to feel hopeless. This past week she started having SI and so came to the hospital. No recent manic episodes for over a year; denies [facility] Formulation/clinical reasoning: Patient with bipolar depression that has been worsening. Has numerous failed medication trials including lithium, Depakote and now Latuda. Discussed risks/side effects of options including Vraylar and patient agrees to start Vraylar. Patient reports sobriety since August of last year; UDS positive for fentanyl however this could be false positive and patient has been living in a TSS. Patient wanted to discontinue Wellbutrin since she has not found it helpful at all; asked for gabapentin to be lowered back to 800 q.i.d. not sure why was increased to 900; patient asks for Thorazine q.h.s. for insomnia and for anxiety. Wants to remain on methadone Plan: CV Q 15 minute checks Start Vraylar 1.5 mg today and then 3 mg tomorrow (insurance should cover given numerous failed mood stabilizing medication trials) DC Latuda: Not helpful and causes emotional numbing dc'd wellburin; not helpful lowere eben to 800 Thorazine 100 mg q.h.s. Thorazine 50 mg p.r.n. for agitation 03/05: Active on unit, pacing while listening to unit headphones. Patient reports her depression has improved but continues to feel anxious throughout the day. per nursing, slept 8 hours last night. denies SI/HI/VH/AH. Patient encouraged to attend groups. Continue current tx plan 03/06 seems more than anxiety akathisia. d/c thorazine and start propanolol 10mg po TID. continue other meds. will increase trazodone, move dose of gabapetin to night time. 03/07 continue tx. increase trazodone to 100mg po qhs. Reason for continued inpatient stay Substantial Risk for: inability to function Time Spent With Patient Time: Total time managing care of this patient today ____ minutes.
[2025-03-08 08:00] VITALS: BP 101/52; PULSE 73; RESP 18; TEMP 36.6; O2SAT 97
[2025-03-08] MEDS: methADONE HCl 20 MG/2 ML ORAL.CONC 125 MG PO (08:09)
[2025-03-08] MEDS: Cariprazine HCl 3 MG CAPSULE PO (08:13)
[2025-03-08] MEDS: ALPRAZolam 0.5 MG TABLET 1 MG PO ×3 (08:13→21:22)
[2025-03-08] MEDS: hydrOXYzine HCL 25 MG TABLET PO ×2 (08:14→21:21)
[2025-03-08] MEDS: Gabapentin 400 MG CAPSULE 800 MG PO ×2 (08:58→17:30)
[2025-03-08 15:15] VITALS: BP 117/72; PULSE 84
[2025-03-08] MEDS: Propranolol HCL 10 MG TABLET PO ×2 (15:15→21:21)
--- NOTE | 2025-03-08 20:35 | P.PNPSI_ITS ---
Subjective Subjective Date of Service: 03/08/25 Reason For Visit: Depression Subjective Notes: Conditional Voluntary Interim History: Pt slept 6hrs. She has been mostly in bed. she does nap intermittently during the day. She continues to report propanolol seems to be decreasing sense of restlessness. She reports difficult staying asleep, would adjust dose of trazodone as she is already on ambien. Review of Systems Review of Systems Constitutional : No Fever, No Chills ENT/Mouth : No Ear Pain, No Nasal Congestion, No sore throat Eyes: No Eye Pain, No Swelling, No Redness Cardiovascular : No Chest Pain, No SOB Respiratory : No Cough, No Sputum, No Dyspnea Gastrointestinal : No Nausea, No Vomiting, No Diarrhea, No Hematochezia, No Melena Genitourinary : No Dysuria, No Urinary Frequency, No Hematuria Musculoskeletal : No Myalgias Skin : No Skin Lesions, No rash Neuro : No Weakness, No Numbness, No Paresthesias, No Dizziness, No Headache Psych : positive Anxiety, positive Depression, positive SI no HI All other systems reviewed and are negative Mental Status Exam Mental Status Exam Narrative: Pt is alert and oriented; behavior is cooperative and calm; dressed in casual attire; mood is described as anxious ; eye contact appropriate; Speech is normal rate, volume and not pressured; thought process is organized and goal directed; Thought content is on tx; denies SI/HI/VH/AH. Diagnostics Vital Signs (24Hr): Vital Signs - 24 hr 03/07/25 21:58 03/08/25 08:00 03/08/25 15:15 Temperature 97.8 F Pulse Rate 79 73 84 Respiratory Rate 18 Blood Pressure 110/61 101/52 L 117/72 Pulse Oximetry 97 Oxygen Delivery Method Room Air BMI result Body Mass Index 37.8 Labs 03/03/25 12:25 03/03/25 12:25 Medications Medications Current Medications Acetaminophen (Acetaminophen 325 Mg Tablet) 650 mg PO Q6H PRN PRN Reason: Headache/Pain, Scale 1-10 Al Hydroxide/Mg Hydroxide (Magnesium Hydrox/Alum Hydrox 30 Ml Oral.Susp) 30 ml PO Q6H PRN PRN Reason: Heartburn/Nausea Alprazolam (Alprazolam 0.5 Mg Tablet) 1 mg PO TID [facility] Last Admin: 03/08/25 15:15 Dose: 1 mg Cariprazine (Cariprazine Hcl 3 Mg Capsule) 3 mg PO DAILY [facility] Last Admin: 03/08/25 08:13 Dose: 3 mg Gabapentin (Gabapentin 400 Mg Capsule) 1,600 mg PO BEDTIME [facility] Last Admin: 03/07/25 22:01 Dose: 1,600 mg Gabapentin (Gabapentin 400 Mg Capsule) 800 mg PO BID@1000,1700 [facility] Last Admin: 03/08/25 17:30 Dose: 800 mg Hydroxyzine HCl (Hydroxyzine Hcl 25 Mg Tablet) 25 mg PO Q6H PRN PRN Reason: mild anxiety Last Admin: 03/08/25 08:14 Dose: 25 mg Ibuprofen (Ibuprofen 600 Mg Tablet) 600 mg PO Q8H PRN PRN Reason: Pain, Mild (Pain Scale 1-3) Magnesium Hydroxide (Milk Of Magnesia 30 Ml Oral.Susp) 30 ml PO DAILY PRN PRN Reason: Constipation Methadone HCl (Methadone Hcl 20 Mg/2 Ml Oral.Conc) 125 mg PO DAILY@0800 [facility] Last Admin: 03/08/25 08:09 Dose: 125 mg Nicotine (Nicotine 21 Mg Patch.Td24) 21 mg TRANSDERMA DAILY PRN PRN Reason: smoking cessation Nicotine Polacrilex (Nicotine Polacrilex 2 Mg Gum) 4 mg BUCCAL Q2H PRN PRN Reason: Nicotine Cravings Last Admin: 03/07/25 09:00 Dose: 4 mg Propranolol HCl (Propranolol Hcl 10 Mg Tablet) 10 mg PO TID [facility]; Protocol Last Admin: 03/08/25 15:15 Dose: 10 mg Trazodone HCl (Trazodone Hcl 100 Mg Tablet) 100 mg PO BEDTIME [facility] Zolpidem Tartrate (Zolpidem Tartrate 5 Mg Tablet) 10 mg PO BEDTIME [facility] Last Admin: 03/07/25 21:58 Dose: 10 mg Allergies Allergies Allergy/AdvReac Type Severity Reaction Status Date / Time phenobarbital Allergy Severe Anaphylaxis Verified 03/03/25 11:56 Assessment & Plan Assessment & Plan (1) Bipolar disorder: Status: Acute Code(s): F31.9 - Bipolar disorder, unspecified (2) PTSD (post-traumatic stress disorder): Status: Acute Code(s): F43.10 - Post-traumatic stress disorder, unspecified (3) Opioid use disorder in remission: Status: Acute Code(s): F11.91 - Opioid use, unspecified, in remission Plan Pt is a 39 yo with hx PTSD, bipolar disorder, PTSD, opioid use disorder, on methadone, who presents for worsening depression and SI with thoughts but no plan or intention to overdose. Patient has been living at a [facility] and reports that she has been sober since August 2024 citing her daughter as a protective factor. She reports that since this past November her depression increased and things started getting harder; she has been without motivation, hard to get out of bed, not attending to ADLs, increase guilty feelings, poor concentration, diminished interest, low energy and difficulty falling asleep. She discussed this with outpatient provider who continued to increase Latuda however it remained ineffective and also caused the side effect of emotional numbing. She asked for a medication change but says provider continued to increase Latuda dose. Patient felt that no one was listening to her, depression increased and she started to feel hopeless. This past week she started having SI and so came to the hospital. No recent manic episodes for over a year; denies AVH Formulation/clinical reasoning: Patient with bipolar depression that has been worsening. Has numerous failed medication trials including lithium, Depakote and now Latuda. Discussed risks/side effects of options including Vraylar and patient agrees to start Vraylar. Patient reports sobriety since August of last year; UDS positive for fentanyl however this could be false positive and patient has been living in a [facility]. Patient wanted to discontinue Wellbutrin since she has not found it helpful at all; asked for gabapentin to be lowered back to 800 q.i.d. not sure why was increased to 900; patient asks for Thorazine q.h.s. for insomnia and for anxiety. Wants to remain on methadone Plan: CV Q 15 minute checks Start Vraylar 1.5 mg today and then 3 mg tomorrow (insurance should cover given numerous failed mood stabilizing medication trials) DC Latuda: Not helpful and causes emotional numbing dc'd wellburin; not helpful lowere eben to 800 Thorazine 100 mg q.h.s. Thorazine 50 mg p.r.n. for agitation 03/05: Active on unit, pacing while listening to unit headphones. Patient reports her depression has improved but continues to feel anxious throughout the day. per nursing, slept 8 hours last night. denies SI/HI/VH/AH. Patient encouraged to attend groups. Continue current tx plan 03/06 seems more than anxiety, is akathisia. d/c thorazine and start propanolol 10mg po TID. continue other meds. will increase trazodone, move dose of gabapetin to night time. 03/07 continue tx. increase trazodone to 100mg po qhs 03/08 continue tx. Reason for continued inpatient stay Substantial Risk for: inability to function Time Spent With Patient Time: Total time managing care of this patient today ____ minutes.
[2025-03-08 21:15] VITALS: BP 125/77; PULSE 79; RESP 18; TEMP 36.4; O2SAT 98
[2025-03-08] MEDS: traZODone HCL 100 MG TABLET PO (21:21)
[2025-03-08] MEDS: Gabapentin 400 MG CAPSULE 1600 MG PO (21:22)
[2025-03-08] MEDS: Zolpidem Tartrate 5 MG TABLET 10 MG PO (21:22)
[2025-03-09 07:47] VITALS: BP 117/67; PULSE 76; RESP 16; TEMP 36.4; O2SAT 98
[2025-03-09] MEDS: methADONE HCl 20 MG/2 ML ORAL.CONC 125 MG PO (08:06)
[2025-03-09] MEDS: hydrOXYzine HCL 25 MG TABLET PO ×2 (08:08→21:36)
[2025-03-09] MEDS: Cariprazine HCl 3 MG CAPSULE PO (08:09)
[2025-03-09] MEDS: Propranolol HCL 10 MG TABLET PO ×3 (08:09→21:36)
[2025-03-09] MEDS: ALPRAZolam 0.5 MG TABLET 1 MG PO ×3 (08:09→21:36)
[2025-03-09] MEDS: Gabapentin 400 MG CAPSULE 800 MG PO ×2 (09:07→16:02)
[2025-03-09] MEDS: Nicotine Polacrilex 2 MG GUM 4 MG BUCCAL ×2 (09:08→19:11)
[2025-03-09] MEDS: Milk of Magnesia 30 ML ORAL.SUSP PO (09:09)
--- NOTE | 2025-03-09 09:44 | P.PNPSI_ITS ---
Subjective Subjective Date of Service: 03/09/25 Reason For Visit: Depression Subjective Notes: Conditional Voluntary Interim History: Active on unit. Patient reports feeling anxious today; she reports not sleeping well despite nursing reporting, she slept 9 hours last night. She is requesting PRN Haldol d/t agitation. denies SI/HI/VH/AH. Plan for patient to return to program this week if continues to improve; pt aware. Medication Compliance: Yes Side effects from medications: No Mental Status Exam Mental Status Exam Narrative: Pt is alert and oriented; behavior is cooperative and calm; dressed in casual attire; mood is described as anxious ; eye contact appropriate; Speech is normal rate, volume and not pressured; thought process is organized and goal directed; Thought content is on tx; denies SI/HI/VH/AH. Diagnostics Vital Signs (24Hr): Vital Signs - 24 hr 03/08/25 15:15 03/08/25 21:15 03/09/25 07:47 Temperature 97.6 F 97.5 F Pulse Rate 84 79 76 Respiratory Rate 18 16 Blood Pressure 117/72 125/77 117/67 Pulse Oximetry 98 98 Oxygen Delivery Method Room Air Room Air BMI result Body Mass Index 37.8 Labs 03/03/25 12:25 03/03/25 12:25 Medications Medications Current Medications Acetaminophen (Acetaminophen 325 Mg Tablet) 650 mg PO Q6H PRN PRN Reason: Headache/Pain, Scale 1-10 Al Hydroxide/Mg Hydroxide (Magnesium Hydrox/Alum Hydrox 30 Ml Oral.Susp) 30 ml PO Q6H PRN PRN Reason: Heartburn/Nausea Alprazolam (Alprazolam 0.5 Mg Tablet) 1 mg PO TID [facility] Last Admin: 03/09/25 08:09 Dose: 1 mg Cariprazine (Cariprazine Hcl 3 Mg Capsule) 3 mg PO DAILY [facility] Last Admin: 03/09/25 08:09 Dose: 3 mg Gabapentin (Gabapentin 400 Mg Capsule) 1,600 mg PO BEDTIME [facility] Last Admin: 03/08/25 21:22 Dose: 1,600 mg Gabapentin (Gabapentin 400 Mg Capsule) 800 mg PO BID@1000,1700 [facility] Last Admin: 03/09/25 09:07 Dose: 800 mg Hydroxyzine HCl (Hydroxyzine Hcl 25 Mg Tablet) 25 mg PO Q6H PRN PRN Reason: mild anxiety Last Admin: 03/09/25 08:08 Dose: 25 mg Ibuprofen (Ibuprofen 600 Mg Tablet) 600 mg PO Q8H PRN PRN Reason: Pain, Mild (Pain Scale 1-3) Magnesium Hydroxide (Milk Of Magnesia 30 Ml Oral.Susp) 30 ml PO DAILY PRN PRN Reason: Constipation Last Admin: 03/09/25 09:09 Dose: 30 ml Methadone HCl (Methadone Hcl 20 Mg/2 Ml Oral.Conc) 125 mg PO DAILY@0800 [facility] Last Admin: 03/09/25 08:06 Dose: 125 mg Nicotine (Nicotine 21 Mg Patch.Td24) 21 mg TRANSDERMA DAILY PRN PRN Reason: smoking cessation Nicotine Polacrilex (Nicotine Polacrilex 2 Mg Gum) 4 mg BUCCAL Q2H PRN PRN Reason: Nicotine Cravings Last Admin: 03/09/25 09:08 Dose: 4 mg Propranolol HCl (Propranolol Hcl 10 Mg Tablet) 10 mg PO TID [facility]; Protocol Last Admin: 03/09/25 08:09 Dose: 10 mg Trazodone HCl (Trazodone Hcl 100 Mg Tablet) 100 mg PO BEDTIME [facility] Last Admin: 03/08/25 21:21 Dose: 100 mg Zolpidem Tartrate (Zolpidem Tartrate 5 Mg Tablet) 10 mg PO BEDTIME [facility] Last Admin: 03/08/25 21:22 Dose: 10 mg Allergies Allergies Allergy/AdvReac Type Severity Reaction Status Date / Time phenobarbital Allergy Severe Anaphylaxis Verified 03/03/25 11:56 Assessment & Plan Assessment & Plan (1) Bipolar disorder: Status: Acute Code(s): F31.9 - Bipolar disorder, unspecified (2) PTSD (post-traumatic stress disorder): Status: Acute Code(s): F43.10 - Post-traumatic stress disorder, unspecified (3) Opioid use disorder in remission: Status: Acute Code(s): F11.91 - Opioid use, unspecified, in remission Plan Pt is a 39 yo with hx PTSD, bipolar disorder, PTSD, opioid use disorder, on methadone, who presents for worsening depression and SI with thoughts but no plan or intention to overdose. Patient has been living at a [facility] and reports that she has been sober since August 2024 citing her daughter as a protective factor. She reports that since this past November her depression increased and things started getting harder; she has been without motivation, hard to get out of bed, not attending to ADLs, increase guilty feelings, poor concentration, diminished interest, low energy and difficulty falling asleep. She discussed this with outpatient provider who continued to increase Latuda however it remained ineffective and also caused the side effect of emotional numbing. She asked for a medication change but says provider continued to increase Latuda dose. Patient felt that no one was listening to her, depression increased and she started to feel hopeless. This past week she started having SI and so came to the hospital. No recent manic episodes for over a year; denies AVH Formulation/clinical reasoning: Patient with bipolar depression that has been worsening. Has numerous failed medication trials including lithium, Depakote and now Latuda. Discussed risks/side effects of options including Vraylar and patient agrees to start Vraylar. Patient reports sobriety since August of last year; UDS positive for fentanyl however this could be false positive and patient has been living in a [facility]. Patient wanted to discontinue Wellbutrin since she has not found it helpful at all; asked for gabapentin to be lowered back to 800 q.i.d. not sure why was increased to 900; patient asks for Thorazine q.h.s. for insomnia and for anxiety. Wants to remain on methadone Plan: CV Q 15 minute checks Start Vraylar 1.5 mg today and then 3 mg tomorrow (insurance should cover given numerous failed mood stabilizing medication trials) DC Latuda: Not helpful and causes emotional numbing dc'd wellburin; not helpful lowere eben to 800 Thorazine 100 mg q.h.s. Thorazine 50 mg p.r.n. for agitation 03/05: Active on unit, pacing while listening to unit headphones. Patient reports her depression has improved but continues to feel anxious throughout the day. per nursing, slept 8 hours last night. denies SI/HI/VH/AH. Patient encouraged to attend groups. Continue current tx plan 03/09: Active on unit. Patient reports feeling anxious today; she reports not sleeping well despite nursing reporting, she slept 9 hours last night. She is requesting PRN Haldol d/t agitation. denies SI/HI/VH/AH. Plan for patient to return to program this week if continues to improve; pt aware. Patient educated on: diagnosis and medication risk/benefits Reason for continued inpatient stay Substantial Risk for: med/psych decompensation Time Spent With Patient Time: Total time managing care of this patient today _20___ minutes.
[2025-03-09 16:01] VITALS: BP 120/62; PULSE 64
[2025-03-09] MEDS: OLANZapine 5 MG TABLET PO (17:17)
[2025-03-09 19:13] VITALS: BP 106/70; PULSE 73; RESP 18; TEMP 36.6; O2SAT 97
[2025-03-09 21:36] VITALS: BP 110/66; PULSE 67
[2025-03-09] MEDS: traZODone HCL 100 MG TABLET PO (21:36)
[2025-03-09] MEDS: Zolpidem Tartrate 5 MG TABLET 10 MG PO (21:36)
[2025-03-09] MEDS: Gabapentin 400 MG CAPSULE 1600 MG PO (21:36)
[2025-03-10 08:40] VITALS: BP 106/62; PULSE 84; RESP 16; TEMP 36.4; O2SAT 98
[2025-03-10] MEDS: methADONE HCl 20 MG/2 ML ORAL.CONC 125 MG PO (08:43)
[2025-03-10] MEDS: ALPRAZolam 0.5 MG TABLET 1 MG PO ×3 (08:52→21:03)
[2025-03-10] MEDS: Cariprazine HCl 3 MG CAPSULE PO (08:52)
[2025-03-10] MEDS: Propranolol HCL 10 MG TABLET PO ×3 (08:53→21:03)
[2025-03-10] MEDS: Gabapentin 400 MG CAPSULE 800 MG PO ×2 (09:14→16:42)
[2025-03-10] MEDS: OLANZapine 5 MG TABLET PO ×3 (09:33→21:03)
[2025-03-10] MEDS: hydrOXYzine HCL 25 MG TABLET PO ×2 (09:33→15:52)
[2025-03-10] MEDS: Nicotine Polacrilex 2 MG GUM 4 MG BUCCAL ×2 (11:29→16:43)
--- NOTE | 2025-03-10 13:52 | P.PNPSI_ITS ---
Subjective Subjective Date of Service: 03/10/25 Reason For Visit: Depression Subjective Notes: Conditional Voluntary Interim History: Patient reports feeling good today with some anxiety; reports she is looking forward to returning to her program. denies SI/HI/VH/AH. per nursing, slept 8 hours. denies any issues at this time. Continue current tx plan. Medication Compliance: Yes Side effects from medications: No Attending Groups: Yes Mental Status Exam Mental Status Exam Narrative: Pt is alert and oriented; behavior is cooperative and calm; dressed in casual attire; mood is described as anxious ; eye contact appropriate; Speech is normal rate, volume and not pressured; thought process is organized; Thought content is on discharge; denies SI/HI/VH/AH. Diagnostics Vital Signs (24Hr): Vital Signs - 24 hr 03/09/25 16:01 03/09/25 19:13 03/09/25 21:36 Temperature 97.8 F Pulse Rate 64 73 67 Respiratory Rate 18 Blood Pressure 120/62 106/70 110/66 Pulse Oximetry 97 Oxygen Delivery Method Room Air 03/10/25 08:40 Temperature 97.6 F Pulse Rate 84 Respiratory Rate 16 Blood Pressure 106/62 Pulse Oximetry 98 Oxygen Delivery Method Room Air BMI result Body Mass Index 37.8 Labs 03/03/25 12:25 03/03/25 12:25 Medications Medications Current Medications Acetaminophen (Acetaminophen 325 Mg Tablet) 650 mg PO Q6H PRN PRN Reason: Headache/Pain, Scale 1-10 Al Hydroxide/Mg Hydroxide (Magnesium Hydrox/Alum Hydrox 30 Ml Oral.Susp) 30 ml PO Q6H PRN PRN Reason: Heartburn/Nausea Alprazolam (Alprazolam 0.5 Mg Tablet) 1 mg PO TID [facility]S [facility] BEDS AT [facility] Last Admin: 03/10/25 08:52 Dose: 1 mg Cariprazine (Cariprazine Hcl 3 Mg Capsule) 3 mg PO DAILY [facility]CLUDE 234 BEDS AT [facility] Last Admin: 03/10/25 08:52 Dose: 3 mg Docusate Sodium (Docusate Sodium 100 Mg Capsule) 100 mg PO BEDTIME PRN PRN Reason: Constipation Gabapentin (Gabapentin 400 Mg Capsule) 1,600 mg PO BEDTIME [facility] 234 BEDS AT [facility] Last Admin: 03/09/25 21:36 Dose: 1,600 mg Gabapentin (Gabapentin 400 Mg Capsule) 800 mg PO BID@1000,1700 [facility]S [facility] 234 BEDS AT [facility] Last Admin: 03/10/25 09:14 Dose: 800 mg Hydroxyzine HCl (Hydroxyzine Hcl 25 Mg Tablet) 25 mg PO Q6H PRN PRN Reason: mild anxiety Last Admin: 03/10/25 09:33 Dose: 25 mg Ibuprofen (Ibuprofen 600 Mg Tablet) 600 mg PO Q8H PRN PRN Reason: Pain, Mild (Pain Scale 1-3) Magnesium Hydroxide (Milk Of Magnesia 30 Ml Oral.Susp) 30 ml PO DAILY PRN PRN Reason: Constipation Last Admin: 03/09/25 09:09 Dose: 30 ml Methadone HCl (Methadone Hcl 20 Mg/2 Ml Oral.Conc) 125 mg PO DAILY@0800 [facility] Last Admin: 03/10/25 08:43 Dose: 125 mg Nicotine (Nicotine 21 Mg Patch.Td24) 21 mg TRANSDERMA DAILY PRN PRN Reason: smoking cessation Nicotine Polacrilex (Nicotine Polacrilex 2 Mg Gum) 4 mg BUCCAL Q2H PRN PRN Reason: Nicotine Cravings Last Admin: 03/10/25 11:29 Dose: 4 mg Olanzapine (Olanzapine 5 Mg Tablet) 5 mg PO Q4H PRN PRN Reason: agitation Last Admin: 03/10/25 09:33 Dose: 5 mg Propranolol HCl (Propranolol Hcl 10 Mg Tablet) 10 mg PO TID [facility]CLUDE 234 BEDS AT [facility]; Protocol Last Admin: 03/10/25 08:53 Dose: 10 mg Trazodone HCl (Trazodone Hcl 100 Mg Tablet) 100 mg PO BEDTIME [facility]S [facility]CLUDE 234 BEDS AT [facility] Last Admin: 03/09/25 21:36 Dose: 100 mg Zolpidem Tartrate (Zolpidem Tartrate 5 Mg Tablet) 10 mg PO BEDTIME [facility] 234 BEDS AT [facility] Last Admin: 03/09/25 21:36 Dose: 10 mg Allergies Allergies Allergy/AdvReac Type Severity Reaction Status Date / Time phenobarbital Allergy Severe Anaphylaxis Verified 03/03/25 11:56 Assessment & Plan Assessment & Plan (1) Bipolar disorder: Status: Acute Code(s): F31.9 - Bipolar disorder, unspecified (2) PTSD (post-traumatic stress disorder): Status: Acute Code(s): F43.10 - Post-traumatic stress disorder, unspecified (3) Opioid use disorder in remission: Status: Acute Code(s): F11.91 - Opioid use, unspecified, in remission Plan Pt is a 39 yo with hx PTSD, bipolar disorder, PTSD, opioid use disorder, on methadone, who presents for worsening depression and SI with thoughts but no plan or intention to overdose. Patient has been living at a [facility] and reports that she has been sober since August 2024 citing her daughter as a protective factor. She reports that since this past November her depression increased and things started getting harder; she has been without motivation, hard to get out of bed, not attending to ADLs, increase guilty feelings, poor concentration, diminished interest, low energy and difficulty falling asleep. She discussed this with outpatient provider who continued to increase Latuda however it remained ineffective and also caused the side effect of emotional numbing. She asked for a medication change but says provider continued to increase Latuda dose. Patient felt that no one was listening to her, depression increased and she started to feel hopeless. This past week she started having SI and so came to the hospital. No recent manic episodes for over a year; denies AVH Formulation/clinical reasoning: Patient with bipolar depression that has been worsening. Has numerous failed medication trials including lithium, Depakote and now Latuda. Discussed risks/side effects of options including Vraylar and patient agrees to start Vraylar. Patient reports sobriety since August of last year; UDS positive for fentanyl however this could be false positive and patient has been living in a TSS. Patient wanted to discontinue Wellbutrin since she has not found it helpful at all; asked for gabapentin to be lowered back to 800 q.i.d. not sure why was increased to 900; patient asks for Thorazine q.h.s. for insomnia and for anxiety. Wants to remain on methadone Plan: CV Q 15 minute checks Start Vraylar 1.5 mg today and then 3 mg tomorrow (insurance should cover given numerous failed mood stabilizing medication trials) DC Latuda: Not helpful and causes emotional numbing dc'd wellburin; not helpful lowere eben to 800 Thorazine 100 mg q.h.s. Thorazine 50 mg p.r.n. for agitation 03/05: Active on unit, pacing while listening to unit headphones. Patient reports her depression has improved but continues to feel anxious throughout the day. per nursing, slept 8 hours last night. denies SI/HI/VH/AH. Patient encouraged to attend groups. Continue current tx plan 03/09: Active on unit. Patient reports feeling anxious today; she reports not sleeping well despite nursing reporting, she slept 9 hours last night. She is requesting PRN Haldol d/t agitation. denies SI/HI/VH/AH. Plan for patient to return to program this week if continues to improve; pt aware. 03/10: Patient reports feeling good today with some anxiety; reports she is looking forward to returning to her program. denies SI/HI/VH/AH. per nursing, slept 8 hours. denies any issues at this time. Continue current tx plan. Patient educated on: diagnosis, medication risk/benefits and therapeutic strategies Reason for continued inpatient stay Substantial Risk for: med/psych decompensation Time Spent With Patient Time: Total time managing care of this patient today _20___ minutes.
[2025-03-10 15:48] VITALS: BP 116/69; PULSE 66
[2025-03-10 21:00] VITALS: BP 97/55; PULSE 73; RESP 16; TEMP 36.4; O2SAT 98
[2025-03-10] MEDS: Gabapentin 400 MG CAPSULE 1600 MG PO (21:01)
[2025-03-10] MEDS: Zolpidem Tartrate 5 MG TABLET 10 MG PO (21:02)
[2025-03-10] MEDS: traZODone HCL 100 MG TABLET PO (21:04)
[2025-03-11] MEDS: hydrOXYzine HCL 25 MG TABLET PO ×2 (04:38→13:50)
[2025-03-11] MEDS: OLANZapine 5 MG TABLET PO ×2 (04:38→15:02)
[2025-03-11 07:00] VITALS: BMI 37.7
[2025-03-11] MEDS: methADONE HCl 20 MG/2 ML ORAL.CONC 125 MG PO (08:08)
[2025-03-11] MEDS: ALPRAZolam 0.5 MG TABLET 1 MG PO ×3 (08:46→21:23)
[2025-03-11 08:47] VITALS: BP 127/72; PULSE 70
[2025-03-11] MEDS: Cariprazine HCl 3 MG CAPSULE PO (08:47)
[2025-03-11] MEDS: Propranolol HCL 10 MG TABLET PO ×3 (08:47→21:23)
[2025-03-11] MEDS: Gabapentin 400 MG CAPSULE 800 MG PO ×2 (08:47→17:15)
--- NOTE | 2025-03-11 11:31 | HO.PSYCHPN ---
Subjective Subjective Date of Service: 03/11/25 Reason For Visit: Depression Subjective Notes: 3 Day Interim History: Patient continues to report feeling good with some anxiety; she reports not sleeping well last night and d/t anxious about going back to the program . denies SI/HI/VH/AH. Plan is to return to [facility] tomorrow;pt aware. Medication Compliance: Yes Side effects from medications: No Attending Groups: No Mental Status Exam Mental Status Exam Narrative: Pt is alert and oriented; behavior is cooperative and calm; dressed in casual attire; mood is described as anxious ; eye contact appropriate; Speech is normal rate, volume and not pressured; thought process is organized; Thought content is on discharge; denies SI/HI/VH/AH. Diagnostics Vital Signs (24Hr): Vital Signs - 24 hr 03/10/25 15:48 03/10/25 21:00 03/11/25 08:47 Temperature 97.5 F Pulse Rate 66 73 70 Respiratory Rate 16 Blood Pressure 116/69 97/55 L 127/72 Pulse Oximetry 98 Oxygen Delivery Method Room Air BMI result Body Mass Index 37.8 Labs 03/03/25 12:25 03/03/25 12:25 Medications Medications Current Medications Acetaminophen (Acetaminophen 325 Mg Tablet) 650 mg PO Q6H PRN PRN Reason: Headache/Pain, Scale 1-10 Al Hydroxide/Mg Hydroxide (Magnesium Hydrox/Alum Hydrox 30 Ml Oral.Susp) 30 ml PO Q6H PRN PRN Reason: Heartburn/Nausea Alprazolam (Alprazolam 0.5 Mg Tablet) 1 mg PO TID [facility] Last Admin: 03/11/25 08:46 Dose: 1 mg Cariprazine (Cariprazine Hcl 3 Mg Capsule) 3 mg PO DAILY [facility] Last Admin: 03/11/25 08:47 Dose: 3 mg Docusate Sodium (Docusate Sodium 100 Mg Capsule) 100 mg PO BEDTIME PRN PRN Reason: Constipation Gabapentin (Gabapentin 400 Mg Capsule) 1,600 mg PO BEDTIME [facility] Last Admin: 03/10/25 21:01 Dose: 1,600 mg Gabapentin (Gabapentin 400 Mg Capsule) 800 mg PO BID@1000,1700 [facility] Last Admin: 03/11/25 08:47 Dose: 800 mg Hydroxyzine HCl (Hydroxyzine Hcl 25 Mg Tablet) 25 mg PO Q6H PRN PRN Reason: mild anxiety Last Admin: 03/11/25 04:38 Dose: 25 mg Ibuprofen (Ibuprofen 600 Mg Tablet) 600 mg PO Q8H PRN PRN Reason: Pain, Mild (Pain Scale 1-3) Magnesium Hydroxide (Milk Of Magnesia 30 Ml Oral.Susp) 30 ml PO DAILY PRN PRN Reason: Constipation Last Admin: 03/09/25 09:09 Dose: 30 ml Methadone HCl (Methadone Hcl 20 Mg/2 Ml Oral.Conc) 125 mg PO DAILY@0800 [facility] Last Admin: 03/11/25 08:08 Dose: 125 mg Nicotine (Nicotine 21 Mg Patch.Td24) 21 mg TRANSDERMA DAILY PRN PRN Reason: smoking cessation Nicotine Polacrilex (Nicotine Polacrilex 2 Mg Gum) 4 mg BUCCAL Q2H PRN PRN Reason: Nicotine Cravings Last Admin: 03/10/25 16:43 Dose: 4 mg Olanzapine (Olanzapine 5 Mg Tablet) 5 mg PO Q4H PRN PRN Reason: agitation Last Admin: 03/11/25 04:38 Dose: 5 mg Propranolol HCl (Propranolol Hcl 10 Mg Tablet) 10 mg PO TID [facility]; Protocol Last Admin: 03/11/25 08:47 Dose: 10 mg Trazodone HCl (Trazodone Hcl 100 Mg Tablet) 100 mg PO BEDTIME [facility] Last Admin: 03/10/25 21:04 Dose: 100 mg Zolpidem Tartrate (Zolpidem Tartrate 5 Mg Tablet) 10 mg PO BEDTIME [facility] Last Admin: 03/10/25 21:02 Dose: 10 mg Allergies Allergies Allergy/AdvReac Type Severity Reaction Status Date / Time phenobarbital Allergy Severe Anaphylaxis Verified 03/03/25 11:56 Assessment & Plan Assessment & Plan (1) Bipolar disorder: Status: Acute Code(s): F31.9 - Bipolar disorder, unspecified (2) PTSD (post-traumatic stress disorder): Status: Acute Code(s): F43.10 - Post-traumatic stress disorder, unspecified (3) Opioid use disorder in remission: Status: Acute Code(s): F11.91 - Opioid use, unspecified, in remission Plan Pt is a 39 yo with hx PTSD, bipolar disorder, PTSD, opioid use disorder, on methadone, who presents for worsening depression and SI with thoughts but no plan or intention to overdose. Patient has been living at a [facility] and reports that she has been sober since August 2024 citing her daughter as a protective factor. She reports that since this past November her depression increased and things started getting harder; she has been without motivation, hard to get out of bed, not attending to ADLs, increase guilty feelings, poor concentration, diminished interest, low energy and difficulty falling asleep. She discussed this with outpatient provider who continued to increase Latuda however it remained ineffective and also caused the side effect of emotional numbing. She asked for a medication change but says provider continued to increase Latuda dose. Patient felt that no one was listening to her, depression increased and she started to feel hopeless. This past week she started having SI and so came to the hospital. No recent manic episodes for over a year; denies AVH Formulation/clinical reasoning: Patient with bipolar depression that has been worsening. Has numerous failed medication trials including lithium, Depakote and now Latuda. Discussed risks/side effects of options including Vraylar and patient agrees to start Vraylar. Patient reports sobriety since August of last year; UDS positive for fentanyl however this could be false positive and patient has been living in a TSS. Patient wanted to discontinue Wellbutrin since she has not found it helpful at all; asked for gabapentin to be lowered back to 800 q.i.d. not sure why was increased to 900; patient asks for Thorazine q.h.s. for insomnia and for anxiety. Wants to remain on methadone Plan: CV Q 15 minute checks Start Vraylar 1.5 mg today and then 3 mg tomorrow (insurance should cover given numerous failed mood stabilizing medication trials) DC Latuda: Not helpful and causes emotional numbing dc'd wellburin; not helpful lowere eben to 800 Thorazine 100 mg q.h.s. Thorazine 50 mg p.r.n. for agitation 03/05: Active on unit, pacing while listening to unit headphones. Patient reports her depression has improved but continues to feel anxious throughout the day. per nursing, slept 8 hours last night. denies SI/HI/VH/AH. Patient encouraged to attend groups. Continue current tx plan 03/09: Active on unit. Patient reports feeling anxious today; she reports not sleeping well despite nursing reporting, she slept 9 hours last night. She is requesting PRN Haldol d/t agitation. denies SI/HI/VH/AH. Plan for patient to return to program this week if continues to improve; pt aware. 03/10: Patient reports feeling good today with some anxiety; reports she is looking forward to returning to her program. denies SI/HI/VH/AH. per nursing, slept 8 hours. denies any issues at this time. Continue current tx plan. 03/11: Patient continues to report feeling good with some anxiety; she reports not sleeping well last night and d/t anxious about going back to the program . denies SI/HI/VH/AH. Plan is to return to [facility] tomorrow;pt aware. Patient educated on: diagnosis, medication risk/benefits and therapeutic strategies Reason for continued inpatient stay Substantial Risk for: stable for discharge Time Spent With Patient Time: Total time managing care of this patient today _20___ minutes.
[2025-03-11] MEDS: Nicotine Polacrilex 2 MG GUM 4 MG BUCCAL (13:47)
[2025-03-11 14:49] VITALS: BP 108/71; PULSE 78; RESP 18
[2025-03-11 14:50] VITALS: BP 108/71; PULSE 78
[2025-03-11 20:00] VITALS: BP 112/69; PULSE 76; RESP 18; TEMP 36.7; O2SAT 97
[2025-03-11 21:23] VITALS: BP 112/69; PULSE 76
[2025-03-11] MEDS: traZODone HCL 100 MG TABLET PO ×2 (21:23→22:49)
[2025-03-11] MEDS: Zolpidem Tartrate 5 MG TABLET 10 MG PO (21:23)
[2025-03-11] MEDS: Gabapentin 400 MG CAPSULE 1600 MG PO (21:24)
[2025-03-12 07:53] VITALS: BP 131/75; PULSE 72; RESP 18; TEMP 36.4; O2SAT 98
[2025-03-12] MEDS: methADONE HCl 20 MG/2 ML ORAL.CONC 125 MG PO (07:56)
[2025-03-12] MEDS: Cariprazine HCl 3 MG CAPSULE PO (08:09)
[2025-03-12] MEDS: ALPRAZolam 0.5 MG TABLET 1 MG PO (08:09)
[2025-03-12] MEDS: Propranolol HCL 10 MG TABLET PO (08:09)
[2025-03-12] MEDS: Naloxone HCl Nasal TAKE HOME 4 MG SPRAY 8 MG NOSTRILALT (08:10)
--- NOTE | 2025-03-12 08:43 | PM.PSYDC ---
DS: Providers Provider Date of Service: 03/12/25 Date of admission: 03/03/25 18:09 Date of discharge: 03/12/25 Primary care physician: Unknown Physician Attending physician on admission: Joni House Attending physician on discharge: Vinnie Richards Discharging clinician: Audrey Taveras DS: Diagnosis Discharge Diagnosis (1) Bipolar disorder: Status: Acute (2) PTSD (post-traumatic stress disorder): Status: Acute (3) Opioid use disorder in remission: Status: Acute DS: Medications Discharge Medications Home Medications: Home Medications ?Medication ?Instructions ?Recorded ?Confirmed alprazolam 1 mg tablet 1 mg PO TID 03/03/25 03/03/25 dextroamphetamine-amphetamine ER 1 cap PO QAM 03/03/25 03/03/25 30 mg 24hr capsule,extend release (Adderall XR) ibuprofen 600 mg tablet 600 mg PO Q8H PRN Pain 03/03/25 03/03/25 methadone 10 mg/mL oral concentrate 125 mg PO DAILY 03/03/25 03/03/25 nicotine (polacrilex) 2 mg gum 2 mg buccal Q1H PRN Nicotine 03/03/25 03/03/25 Cravings zolpidem 10 mg tablet 10 mg PO BEDTIME 03/03/25 03/03/25 Previous Rx's ?Medication ?Instructions ?Recorded cariprazine 3 mg capsule (Vraylar) 3 mg PO DAILY 30 days #30 caps 03/11/25 gabapentin 800 mg tablet 1,600 mg (2 x 800 mg) PO BEDTIME 03/11/25 30 days #60 tabs gabapentin 800 mg tablet 800 mg PO BID@1000,1700 30 days 03/11/25 #60 tabs olanzapine 5 mg tablet 5 mg PO BID PRN agitation 30 days 03/11/25 #60 tabs propranolol 10 mg tablet 10 mg PO TID 30 days #90 tabs 03/11/25 trazodone 100 mg tablet 100 mg PO BEDTIME 30 days #30 tabs 03/11/25 Mental Status Exam Mental Status Exam Narrative: Pt is alert and oriented; behavior is cooperative and calm; dressed in casual attire; mood is described as good ; eye contact appropriate; Speech is normal rate, volume and not pressured; thought process is organized; Thought content is on discharge; denies SI/HI/VH/AH. DS: Summary Hospital Course Hospital Course: Pt is a 39 yo with hx bipolar disorder, PTSD, opioid use disorder, on methadone, who presents for worsening depression and SI with thoughts but no plan or intention to overdose. Patient has been living at a TSS and reports that she has been sober since August 2024 citing her daughter as a protective factor. She reports that since this past November her depression increased and things started getting harder; she has been without motivation, hard to get out of bed, not attending to ADLs, increase guilty feelings, poor concentration, diminished interest, low energy and difficulty falling asleep. She discussed this with outpatient provider who continued to increase Latuda however it remained ineffective and also caused the side effect of emotional numbing. She asked for a medication change but says provider continued to increase Latuda dose. Patient felt that no one was listening to her, depression increased and she started to feel hopeless. This past week she started having SI and so came to the hospital. No recent manic episodes for over a year; denies AVH Formulation/clinical reasoning: Patient with bipolar depression that has been worsening. Has numerous failed medication trials including lithium, Depakote and now Latuda. Discussed risks/side effects of options including Vraylar and patient agrees to start Vraylar. Patient reports sobriety since August of last year; UDS positive for fentanyl however this could be false positive and patient has been living in a TSS. Patient wanted to discontinue Wellbutrin since she has not found it helpful at all; asked for gabapentin to be lowered back to 800 q.i.d. not sure why was increased to 900; patient asks for Thorazine q.h.s. for insomnia and for anxiety. Wants to remain on methadone Plan: CV Q 15 minute checks Start Vraylar 1.5 mg today and then 3 mg tomorrow (insurance should cover given numerous failed mood stabilizing medication trials) DC Latuda: Not helpful and causes emotional numbing dc'd wellburin; not helpful lowere eben to 800 Thorazine 100 mg q.h.s. Thorazine 50 mg p.r.n. for agitation Active on unit, pacing while listening to unit headphones. Patient reports her depression has improved but continues to feel anxious throughout the day. per nursing, slept 8 hours last night. denies SI/HI/VH/AH. Patient encouraged to attend groups. Continue current tx plan Active on unit. Patient reports feeling anxious today; she reports not sleeping well despite nursing reporting, she slept 9 hours last night. She is requesting PRN Haldol d/t agitation. denies SI/HI/VH/AH. Plan for patient to return to program this week if continues to improve; pt aware. Patient reports feeling good today with some anxiety; reports she is looking forward to returning to her program. denies SI/HI/VH/AH. per nursing, slept 8 hours. denies any issues at this time. Continue current tx plan. Patient continues to report feeling good with some anxiety; she reports not sleeping well last night and d/t anxious about going back to the program . denies SI/HI/VH/AH. Plan is to return to [facility] tomorrow;pt aware. Patient reports feeling good and ready for discharge. denies SI/HI/VH/AH. Pt plans on following up with outpatient providers. Status at Discharge Cognitive/behavioral status at discharge: Patient has insight and demonstrates good judgment in terms of wanting to pursue treatment. Patient has a safety plan that includes presenting to the closest ER or calling 911 if feeling unsafe. Functional status at discharge: independent ambulation Overall status at discharge: patient is back to baseline Time Spent with Patient Time attestation: Total time managing care of this patient today _20___ minutes. Time spent: Less than 30 minutes Discharge Plan Discharge Anticipated Discharge Date/Time: 03/12/25 11:00 Patient Disposition: Home, Self-Care Discharge Diagnosis: Bipolar d/o, PTSD, opioid use d/o Referrals: [facility] [Provider Group] - 1 Week (03-11-25 [facility] was added to patients chart. Please call [phone] to schedule a follow up appt within 7-10 days of your discharge. No release or PCP on file.) Discharge Medications: New trazodone 100 mg Tablet 100 mg PO BEDTIME 30 Days Qty: 30 0RF olanzapine 5 mg Tablet 5 mg PO BID PRN (Reason: agitation) 30 Days Qty: 60 0RF gabapentin 800 mg tablet 1,600 mg PO BEDTIME 30 Days Qty: 60 0RF gabapentin 800 mg tablet 800 mg PO BID@1000,1700 30 Days Qty: 60 0RF Vraylar 3 mg Capsule 3 mg PO DAILY 30 Days Qty: 30 0RF propranolol 10 mg Tablet 10 mg PO TID 30 Days Qty: 90 0RF Protocol: Hold for SBP/HR < HOLD for SBP < : 90 HOLD for HR < : 60 Continued alprazolam 1 mg tablet 1 mg PO TID zolpidem 10 mg tablet 10 mg PO BEDTIME Patient Comments: states that she takes this medication every day at bedtime dextroamphetamine-amphetamine [Adderall XR] 30 mg capsule,extended release 24hr 1 cap PO QAM nicotine (polacrilex) 2 mg Gum 2 mg BUCCAL Q1H PRN (Reason: Nicotine Cravings) ibuprofen 600 mg Tablet 600 mg PO Q8H PRN (Reason: Pain) methadone 10 mg/mL Concentrate 125 mg PO DAILY Discontinued chlorpromazine [Thorazine] 100 mg Tablet 100 mg PO TID PRN (Reason: Agitation) Patient Comments: verbally stated that she takes this medication 3 times a day. gabapentin 100 mg capsule 100 mg PO Q6H Patient Comments: stated that she takes a total of 900 mg Gabapentin 4 times per day Rx Instructions: take with 800 mg chlorpromazine [Thorazine] 200 mg Tablet 200 mg PO QPM Patient Comments: verbally stated that she takes this medication/dose daily at bedtime. dextroamphetamine-amphetamine 30 mg Tablet 30 mg PO QNOON gabapentin 800 mg Tablet 800 mg PO Q6H Rx Instructions: take with 100 mg lurasidone 120 mg Tablet 120 mg PO DAILY Rx Instructions: must administer with food (at least 360 calories) bupropion HCl 150 mg Tablet Sustained-Release 12 Hr 300 mg PO DAILY Discharge Orders: Discharge Order (Routine); Ordered 03/12/25 Ordered By: Audrey Taveras Diet: Regular diet Activity on Discharge: As tolerated Stand Alone Forms: Patient Portal Discharge page, Community Support Print Language: Italian Care Plan Goals: Maintain mood and safe behaviors Take medications as prescribed Continue to pursue sobriety Practice coping skills Continue with outpatient providers and reach out to them as needed Health Concerns: Mood stability and behaviors Sobriety Plan of Treatment: Follow up with your PCP, psychiatric provider and other outpatient providers regarding above concerns Take medications as prescribed Assessment: Patient has insight and demonstrates good judgment in terms of wanting to pursue treatment. Patient has a safety plan that includes presenting to the closest ER or calling 911 if feeling unsafe. Discharge Date/Time: 03/12/25 11:00
[2025-03-12] MEDS: Gabapentin 400 MG CAPSULE 800 MG PO (09:54)
[2025-03-12] MEDS: Nicotine Polacrilex 2 MG GUM 4 MG BUCCAL (10:28)
== END 2025-03-12 11:00 | disposition home or self-care (01) | DRG 750 ==
LOC: HO.ED 12:36 → HO.PADLT16 18:29
PROVIDERS: Admitting Provider Psychiatry & Neurology Psychiatry; Emergency Provider Emergency Medicine; Responsible Provider Registered Nurse; Visit Provider Psychiatry & Neurology Psychiatry
DX: F25.0 Schizoaffective disorder, bipolar type (principal); R45.851 Suicidal ideations; F43.10 Post-traumatic stress disorder, unspecified; F11.20 Opioid dependence, uncomplicated; F17.210 Nicotine dependence, cigarettes, uncomplicated; Z71.6 Tobacco abuse counseling; Z79.899 Other long term (current) drug therapy
CPT/HCPCS: 36415; 80048; 80076; 80307; 83735; 84702; 85025; 93005; 99285; S9485

== ENCOUNTER → 2025-03-03 13:43 | Outpatient (BNV) | payer OTHER, SELFPAY | PROVIDERS: Admitting Provider Psychiatry & Neurology Psychiatry; Emergency Provider Emergency Medicine; Visit Provider Internal Medicine Cardiovascular Disease | DX: R94.31 Abnormal electrocardiogram [ECG] [EKG] (principal); Z13.6 Encounter for screening for cardiovascular disorders | CPT/HCPCS: 93010 ==

== ENCOUNTER → 2025-03-03 18:09 | Outpatient (BNV) | payer OTHER, SELFPAY | PROVIDERS: Admitting Provider Psychiatry & Neurology Psychiatry; Emergency Provider Emergency Medicine; Responsible Provider Registered Nurse; Visit Provider Psychiatry & Neurology Psychiatry | DX: F31.4 Bipolar disorder, current episode depressed, severe, without psychotic features (principal); F43.11 Post-traumatic stress disorder, acute; F11.91 Opioid use, unspecified, in remission | CPT/HCPCS: 90792; 99231; 99232; 99238 ==